=== PATIENT | female | born 1950 | race Caucasian/White ===

== ENCOUNTER 2016-11-09 14:49 | Emergency (ER) | payer MEDICARE, OTHER ==
[2016-11-09] MEDS ORDERED: DIPHENOX-ATROP 2.5-0.025 MG 1 EACH TAB PO STA (14:56)
[2016-11-09] MEDS ORDERED: DIPHENOX-ATROP STARTER PACK 8 TAB BTL PO STA (14:56)
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
[2016-11-09 15:03] VITALS: BP 124/87; PULSE 78; RESP 16; TEMP 98.5
== END 2016-11-09 15:08 | disposition home or self-care (01) ==
LOC: EC 14:49
DX: R19.7 Diarrhea, unspecified (principal); E11.9 Type 2 diabetes mellitus without complications; Z90.49 Acquired absence of other specified parts of digestive tract; Z88.6 Allergy status to analgesic agent; Z88.1 Allergy status to other antibiotic agents; Z88.5 Allergy status to narcotic agent; Z88.8 Allergy status to other drugs, medicaments and biological substances; Z79.4 Long term (current) use of insulin
CPT/HCPCS: 99283

== ENCOUNTER 2016-11-11 17:37 | Emergency (ER) | payer MEDICARE ==
[2016-11-11 17:58] VITALS: RESP 18
[2016-11-11] MEDS ORDERED: traMADol 50 MG TAB PO STA (20:04)
[2016-11-11] MEDS ORDERED: INSULIN REGULAR 100 UNIT/ML VIAL SQ ONE (20:04)
[2016-11-11 20:28] LABS: Glucose,Whole Blood 537 mg/dL (75-99)
[2016-11-11] MEDS ORDERED: MORPHINE SULFATE 10 MG/ML SYRINGE IM STA (20:36)
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
[2016-11-11 21:13] LABS: Amorphous Sediment,Urine Occasional /hpf; Appearance,Urine Cloudy (Clear); Bacteria,Urine Many /hpf; Bilirubin,Urine Negative (Negative); Glucose,Urine (UA) 4+ (Negative); Ketones,Urine 1+ (Negative); Leukocyte Esterase,Urine Large (Negative); Nitrite,Urine Negative (Negative); Particle Count 14164; Protein,Urine Negative (Negative); Specific Gravity,Urine 1.026 (1.001-1.035); Squamous Epithelial Cell,Urine 21 /hpf (0-4); UA Billing (MACRO vs. MICRO) MICRO; Urobilinogen,Urine <2.0 mg/dL (<2.0); WBC,Urine 20 /hpf (0-5)
[2016-11-11 21:13] LABS: Glucose,Whole Blood 546 mg/dL (75-99)
[2016-11-11 21:26] VITALS: BP 143/87; PULSE 100; TEMP 97.9
[2016-11-12 15:29] LABS: Glucose,Whole Blood 580 mg/dL (75-99)
== END 2016-11-11 21:26 | disposition home or self-care (01) ==
LOC: EC 17:37
DX: E11.65 Type 2 diabetes mellitus with hyperglycemia (principal); M79.1 Myalgia; G89.29 Other chronic pain; Z79.4 Long term (current) use of insulin; Z88.6 Allergy status to analgesic agent; Z88.1 Allergy status to other antibiotic agents; Z88.5 Allergy status to narcotic agent; Z88.8 Allergy status to other drugs, medicaments and biological substances
CPT/HCPCS: 36415; 81001; 87086; 99285; 96372; J2270

== ENCOUNTER 2016-11-12 22:42 | Emergency (ER) | payer MEDICARE ==
[2016-11-12 22:54] VITALS: TEMP 98.3
[2016-11-12] MEDS ORDERED: SODIUM CHLORIDE 0.9% 1,000 ML IV STA ×2 (22:56)
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
[2016-11-12 23:34] VITALS: RESP 16
[2016-11-12 23:52] LABS: Basophils % (A) 0 %; CH 28.4; CHCM 35.3; Eosinophils # (A) 0.1 k/uL (0-0.7); Eosinophils % (A) 1 %; HCT 41.6 % (34.0-46.0); HDW 3.29; HGB 14.1 gm/dL (11.4-16.0); Luc # (Auto) 0.18; Luc % (Auto) 2; Lymphocytes # (A) 2.1 k/uL (1.0-4.8); Lymphocytes % (A) 24 %; MCH 27.4 pg (25.0-35.0); MCHC 33.8 g/dL (31.0-37.0); Monocytes # (A) 0.6 k/uL (0-1.0); Monocytes % (A) 7 %; Neutrophils # (A) 5.9 k/uL (1.3-7.7); Neutrophils % (A) 66 %; RBC 5.14 m/uL (3.80-5.40); RDW 14.3 % (11.5-15.5); WBC 8.8 k/uL (3.8-10.6); WBC (Perox) 8.94
[2016-11-13 00:04] LABS: Calcium 10.4 mg/dL (8.4-10.2); Magnesium 2.2 mg/dL (1.6-2.3); Potassium 3.9 mmol/L (3.5-5.1); Total Bilirubin 0.7 mg/dL (0.2-1.3); Total Protein 7.8 g/dL (6.3-8.2)
[2016-11-13 00:23] LABS: Creatine Kinase MB 1.7 ng/mL (0.0-2.4)
--- NOTE | 2016-11-13 01:10 | XR ---
EXAM: XR Cervical Spine, 4 or 5 Views. CLINICAL HISTORY: Reason: Pain TECHNIQUE: Frontal, lateral and oblique views of the cervical spine. COMPARISON: No relevant prior studies available. FINDINGS: Vertebrae: Suspected acute fracture of a C7 pedicle/facet seen on lateral and left oblique views. Recommend CT for further evaluation. 2 mm anterolisthesis at C3-4. Disc spaces: Mild to moderate degenerative changes of the cervical spine. Soft tissues: Unremarkable. Vasculature: Carotid bulb calcifications. Other findings: Poor dentition. Please refer to separately dictated chest x-ray for chest findings. IMPRESSION: 1. Suspected acute fracture of a C7 pedicle/facet seen on lateral and left oblique views. Recommend CT for further evaluation. 2. 2 mm anterolisthesis at C3-4. 3. Mild to moderate degenerative changes of the cervical spine. Critical Value Communications 11/13/16 01:14 Verify Receipt Verified receipt with JAVI Swartz, given to Dr. Ledesma on 11/13 01:14 (-04:00)
[2016-11-13] MEDS ORDERED: INSULIN REGULAR 100 UNIT/ML VIAL SQ STA (01:13)
[2016-11-13] MEDS ORDERED: HYDROcodone/APAP 5-325MG 1 EACH TAB PO STA (01:13)
[2016-11-13] MEDS ORDERED: MORPHINE SULFATE 4 MG/ML SYRINGE IV STA (01:16)
--- NOTE | 2016-11-13 01:38 | XR ---
EXAM: XR Chest, 1 View. CLINICAL HISTORY: Reason: pain TECHNIQUE: Frontal view of the chest. COMPARISON: No relevant prior studies available. FINDINGS: Lungs: Limited exam due to low lung volumes. No gross consolidation or pleural effusion. Heart: Enlarged cardiac silhouette may be exaggerated by low lung volumes. Mediastinum: Unremarkable. Bones/joints: Mild degenerative changes of the spine. Moderate degenerative changes of the left glenohumeral joint. IMPRESSION: 1. Limited exam due to low lung volumes. No gross consolidation or pleural effusion. 2. Enlarged cardiac silhouette may be exaggerated by low lung volumes.
--- NOTE | 2016-11-13 01:45 | XR ---
EXAM: X-ray pelvis, one view. X-ray left femur, 2 views. X-ray left tibia-fibula, 2 views. CLINICAL HISTORY: Reason: Pain TECHNIQUE: Frontal view of the pelvis. Frontal and lateral views of the left femur. Frontal and lateral views of the left tibia and fibula. COMPARISON: X-rays of the pelvis 02/19/2015. FINDINGS: Bones/joints: No acute fracture or dislocation. Indeterminate 26 mm round density projecting over the left iliac bone; follow-up recommended. Moderate degenerative changes of the partially imaged lumbar spine. Severe degenerative changes bilateral hips. Mild degenerative changes of the knee. Patellar enthesopathy at the quadriceps tendon insertion. Soft tissues: Mild soft tissue swelling of the anterior redd. 11 mm oval density projecting over the mid tibia; please correlate for foreign body. Excreted contrast in the bladder. IMPRESSION: 1. No acute fracture or dislocation. 2. Mild soft tissue swelling of the anterior redd. 3. 11 mm oval density projecting over the mid tibia; please correlate for foreign body. 4. Indeterminate 26 mm round density projecting over the left iliac bone, possibly stool content; follow-up recommended. 5. Degenerative changes, detailed above.
[2016-11-13 02:58] LABS: Appearance,Urine Turbid (Clear); Bacteria,Urine Many /hpf; Bilirubin,Urine Negative (Negative); Glucose,Urine (UA) 4+ (Negative); Ketones,Urine Negative (Negative); Leukocyte Esterase,Urine Large (Negative); Mucus,Urine Many /hpf; Nitrite,Urine Negative (Negative); Particle Count 165107; Protein,Urine 1+ (Negative); RBC,Urine 14 /hpf (0-5); Specific Gravity,Urine 1.017 (1.001-1.035); Squamous Epithelial Cell,Urine 9 /hpf (0-4); UA Billing (MACRO vs. MICRO) MICRO; Urobilinogen,Urine <2.0 mg/dL (<2.0); WBC,Urine 97 /hpf (0-5)
[2016-11-13 03:13] LABS: Glucose,Whole Blood 352 mg/dL (75-99)
--- NOTE | 2016-11-13 03:20 | CT ---
EXAM: CT Cervical Spine Without Intravenous Contrast. CLINICAL HISTORY: Reason: Pain, attention c7 per XRay TECHNIQUE: Axial computed tomography images of the cervical spine without intravenous contrast. CTDI is 32 mGy and DLP is 567 mGy-cm This CT exam was performed using one or more of the following dose reduction techniques: automated exposure control, adjustment of the mA and/or kV according to patient size, and/or use of iterative reconstruction technique. COMPARISON: Radiographs 11/12/2016. FINDINGS: Vertebrae: No acute fracture. Apparent cortical break seen on x-rays likely due to a combination of projectional artifact and an asymmetrically small right C7 pedicle. Straightening of the usual cervical lordosis. Left convex curvature of the cervical spine. Discs/spinal canal/neural foramina: Moderate degenerative changes of the cervical spine, particularly of the facets. Cortical irregularity at the left C3-4 facet joint felt to be degenerative in etiology. Soft tissues: Unremarkable. Lung apices: Unremarkable as visualized. IMPRESSION: No acute fracture. Apparent cortical break seen on x-rays likely due to a combination of projectional artifact and an asymmetrically small right C7 pedicle.
[2016-11-13 04:00] VITALS: BP 100/57; PULSE 107
[2016-11-13 20:35] LABS: Hemoglobin A1C 14.7 % (4.2-6.1)
== END 2016-11-13 03:59 | disposition home or self-care (01) ==
LOC: EC 22:42
DX: S80.02XA Contusion of left knee, initial encounter (principal); S70.02XA Contusion of left hip, initial encounter; S10.93XA Contusion of unspecified part of neck, initial encounter; W06.XXXA Fall from bed, initial encounter; E11.65 Type 2 diabetes mellitus with hyperglycemia; I87.2 Venous insufficiency (chronic) (peripheral); Z79.4 Long term (current) use of insulin; Z79.899 Other long term (current) drug therapy
CPT/HCPCS: 99284; 96360; 96374; 36415 ×2; 80053; 82150; 83036; 82550; 82553; 83690; 83735; 85025; 81001; 71010; 72050; 72170; 73552; 73590; 72125; J2270

== ENCOUNTER 2016-11-14 03:43 | Emergency (ER) | payer MEDICARE ==
[2016-11-14 03:53] VITALS: BP 155/91; PULSE 108; RESP 20; TEMP 97.7
[2016-11-14] MEDS ORDERED: ACETAMINOPHEN TAB 500 MG TAB PO STA (04:24)
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
== END 2016-11-14 04:43 | disposition home or self-care (01) ==
LOC: EC 03:43
DX: S16.1XXA Strain of muscle, fascia and tendon at neck level, initial encounter (principal); Z86.14 Personal history of Methicillin resistant Staphylococcus aureus infection; Z88.1 Allergy status to other antibiotic agents; Z88.5 Allergy status to narcotic agent; Z88.6 Allergy status to analgesic agent; Z88.8 Allergy status to other drugs, medicaments and biological substances; X50.1XXA Overexertion from prolonged static or awkward postures, initial encounter
CPT/HCPCS: 99283; 99284

== ENCOUNTER 2016-11-15 03:57 | Emergency (ER) | payer MEDICARE ==
[2016-11-15 04:04] VITALS: TEMP 97.4
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
--- NOTE | 2016-11-15 04:50 | CT ---
EXAM: CT Head Without Intravenous Contrast. CLINICAL HISTORY: Reason: Pain TECHNIQUE: Axial computed tomography images of the head/brain without intravenous contrast. CTDI is 58.00 mGy and DLP is 1058.00 mGy-cm This CT exam was performed using one or more of the following dose reduction techniques: automated exposure control, adjustment of the mA and/or kV according to patient size, and/or use of iterative reconstruction technique. COMPARISON: 01/09/[address] FINDINGS: Brain: Mild to moderate generalized atrophy is again present along with scattered periventricular white matter patchy hypodensity most commonly seen on a chronic small vessel ischemic basis. No hemorrhage. Ventricles: Stable. Bones/joints: Stable. No acute fracture. Sinuses: Partially included small round filling defect suggesting a tiny mucous retention cyst or polyp posteriorly in the right maxillary sinus. Mastoid air cells: Unremarkable as visualized. No mastoid effusion. IMPRESSION: No new acute intracranial abnormality is seen, as above. EXAM: CT Cervical Spine Without Intravenous Contrast. CLINICAL HISTORY: Reason: Pain TECHNIQUE: Axial computed tomography images of the cervical spine without intravenous contrast. CTDI is 35.40 mGy and DLP is 828.50 mGy-cm This CT exam was performed using one or more of the following dose reduction techniques: automated exposure control, adjustment of the mA and/or kV according to patient size, and/or use of iterative reconstruction technique. COMPARISON: Recent 11/13/[address] FINDINGS: Vertebrae: Stable. No acute fracture. Of incidental note is incomplete posterior C1 ring, an anatomic variant. Discs/spinal canal/neural foramina: No change in alignment is seen. There is again mild curvature towards the left of the upper to mid cervical spine and towards the right of the lower cervical and upper thoracic spine, and nonspecific straightening of the normal cervical lordosis. There is again multilevel arthritic and degenerative change present throughout, including involvement of the disc spaces and facet joints, the latter of which again includes mild erosive changes at the left C3-4 facet joint just inferior to fusion of the left C2-3 facet joint, stable. There is again mild reduction of the central canal volume with multilevel foraminal stenosis, likewise stable. Soft tissues: Stable. Prevertebral soft tissues are within normal limits. Vasculature: Carotid and vertebral arterial vascular calcifications are again present. Lung apices: Unremarkable as visualized. IMPRESSION: 1. No significant change since recent 11/13/16 CT including no new acute osseous abnormality seen, as above. 2. Clinical clearance of the cervical spine is still recommended.
[2016-11-15] MEDS ORDERED: ACETAMINOPHEN TAB 500 MG TAB PO STA (05:11)
[2016-11-15 05:22] VITALS: BP 143/67; PULSE 78; RESP 18
== END 2016-11-15 05:21 | disposition home or self-care (01) ==
LOC: EC 03:57
DX: S16.1XXA Strain of muscle, fascia and tendon at neck level, initial encounter (principal); S09.90XA Unspecified injury of head, initial encounter; Z88.6 Allergy status to analgesic agent; Z88.1 Allergy status to other antibiotic agents; Z88.8 Allergy status to other drugs, medicaments and biological substances; W06.XXXA Fall from bed, initial encounter
CPT/HCPCS: 70450; 72125; 99284

== ENCOUNTER 2016-11-15 15:32 | Inpatient (IN) | payer MEDICARE ==
[2016-11-15] MEDS ORDERED: MORPHINE SULFATE 4 MG/ML SYRINGE IVP STA (17:05)
[2016-11-15] MEDS ORDERED: SODIUM CHLORIDE 0.9% 1,000 ML IV ONE (17:05)
[2016-11-15] MEDS ORDERED: KETOROLAC 30 MG/ML 1 ML VIAL IVP STA (17:05)
[2016-11-15] MEDS ORDERED: KETOROLAC 30 MG/ML 1 ML VIAL IM STA (18:23)
[2016-11-15 18:42] LABS: Basophils % (A) 1 %; CH 28.6; CHCM 35.7; Eosinophils # (A) 0.1 k/uL (0-0.7); Eosinophils % (A) 1 %; HCT 36.1 % (34.0-46.0); HDW 3.35; HGB 12.8 gm/dL (11.4-16.0); Luc % (Auto) 4; Lymphocytes # (A) 1.6 k/uL (1.0-4.8); Lymphocytes % (A) 30 %; MCH 28.5 pg (25.0-35.0); MCHC 35.4 g/dL (31.0-37.0); MCV 80.5 fL (80.0-100.0); Mean Platelet Volume 8.8; Monocytes # (A) 0.4 k/uL (0-1.0); Monocytes % (A) 8 %; Neutrophils % (A) 57 %; RBC 4.49 m/uL (3.80-5.40); RDW 14.2 % (11.5-15.5); WBC 5.3 k/uL (3.8-10.6); WBC (Perox) 5.44
[2016-11-15 18:51] LABS: Anion Gap 13 mmol/L; Blood Urea Nitrogen 27 mg/dL (7-17); Calcium 9.9 mg/dL (8.4-10.2); Carbon Dioxide 21 mmol/L (22-30); Chloride 102 mmol/L (98-107); Non-African American GFR(MDRD) >60 (>60 ml/min/1.73 sqM); Potassium 4.6 mmol/L (3.5-5.1); Sodium 136 mmol/L (137-145)
[2016-11-15 18:53] LABS: Glucose 527 mg/dL (74-99)
[2016-11-15 18:55] LABS: Appearance,Urine Clear (Clear); Bilirubin,Urine Negative (Negative); Glucose,Urine (UA) 4+ (Negative); Ketones,Urine Negative (Negative); Leukocyte Esterase,Urine Negative (Negative); Nitrite,Urine Negative (Negative); PH, Urine 5.5 (5.0-8.0); Protein,Urine Negative (Negative); Specific Gravity,Urine 1.025 (1.001-1.035); UA Billing (MACRO vs. MICRO) CHEM; Urobilinogen,Urine <2.0 mg/dL (<2.0)
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
--- NOTE | 2016-11-15 19:49 | XR ---
EXAMINATION TYPE: XR wrist complete RT DATE OF EXAM: 11/15/2016 7:45 PM COMPARISON: NONE HISTORY: Pain TECHNIQUE: 4 views FINDINGS: There is a developmentally short ulna. I see no fracture nor dislocation. Carpal bones appe ar intact. IMPRESSION: No acute abnormality of the right wrist.
--- NOTE | 2016-11-15 19:53 | CT ---
EXAMINATION TYPE: CT brain wo con DATE OF EXAM: 11/15/2016 7:48 PM COMPARISON: 01/09/2014 HISTORY: Fall injury. CT DLP: 2729 mGycm Automated exposure control for dose reduction was used. FINDINGS: There is cerebral cortical atrophy. There is no mass effect nor midline shift. There is no sign of in tracranial hemorrhage. The calvarium is intact. IMPRESSION: Cerebral atrophy. No acute intracranial abnormality. No change.
--- NOTE | 2016-11-15 19:54 | XR ---
EXAMINATION TYPE: XR shoulder limited LT DATE OF EXAM: 11/15/2016 7:45 PM COMPARISON: NONE HISTORY: Pain TECHNIQUE: Single view FINDINGS: There is narrowing of the glenohumeral joint with spur formation. There is spurring at the greater tuberosity of the humerus. There is spurring at the AC joint. I see no fracture. IMPRESSION: Moderately severe osteoarthritis. No fracture seen. Limited exam.
--- NOTE | 2016-11-15 19:56 | XR ---
EXAMINATION TYPE: XR ankle complete bilateral DATE OF EXAM: 11/15/2016 7:48 PM COMPARISON: NONE HISTORY: Pain after fall TECHNIQUE: 3 views FINDINGS: I see no fracture nor dislocation. Ankle mortise is anatomic. IMPRESSION: Negative left ankle exam.
--- NOTE | 2016-11-15 20:02 | CT ---
EXAMINATION TYPE: CT CervThorLumbar spine wo con DATE OF EXAM: 11/15/2016 7:48 PM COMPARISON: NONE HISTORY: Pt states of spine pain after fall injury. CT DLP: 2729 mGycm Automated exposure control for dose reduction was used. FINDINGS: There is fairly normal alignment of the cervical thoracic and lumbar vertebra. I see no scoliosis. Th ere is hypertrophic spurring of the endplates throughout the lower thoracic spine and entire lumbar s pine. There is degenerative disc space narrowing throughout the lumbar spine. The posterior elements are intact. There is no evidence of thoracic paraspinal mass. I see no focal bone destruction. There is no evidence of spinal stenosis. There is some narrowing of the disc spaces and mild spurring at C5 -6 C6-7. Skull base appears intact. IMPRESSION: THERE IS MILD TO MODERATE MULTILEVEL SPONDYLOTIC CHANGE IN THE SPINE DESCRIBED ABOVE. NO COMPRESSI ON FRACTURE SEEN. I DO NOT SEE EVIDENCE OF AN ACUTE INJURY. THERE IS NOTED TO 3.7 CM MILD ANEURYSM OF THE ASCENDING AORTA.
--- NOTE | 2016-11-15 20:03 | XR ---
EXAMINATION TYPE: XR knee complete bilateral DATE OF EXAM: 11/15/2016 7:58 PM COMPARISON: NONE HISTORY: Pain after a fall TECHNIQUE: 6 views FINDINGS: There is some osteopenia. There is spurring of the medial femoral and tibial condyles. Ther e is bilateral spurring at the patellofemoral joints. I see no fracture. IMPRESSION: Mild hypertrophic osteoarthritis. No fracture seen.
[2016-11-15] MEDS ORDERED: NALOXONE 0.4 MG/ML 1 ML VIAL IV PRN (20:13)
[2016-11-15] MEDS ORDERED: IBUPROFEN 400 MG TAB PO PRN (20:13)
[2016-11-15] MEDS ORDERED: ONDANSETRON 4 MG/2 ML VIAL IVP PRN (20:13)
[2016-11-15] MEDS ORDERED: KETOROLAC 30 MG/ML 1 ML VIAL IVP PRN (20:13)
[2016-11-15] MEDS ORDERED: ACETAMINOPHEN TAB 325 MG TAB PO PRN (20:13)
[2016-11-15] MEDS ORDERED: ALBUTEROL NEBULIZED 2.5 MG/3 ML INHALATION PRN (20:15)
[2016-11-15] MEDS ORDERED: predniSONE 2.5 MG TAB PO PRN (20:15)
[2016-11-15] MEDS ORDERED: FUROSEMIDE 40 MG TAB PO PRN (20:15)
[2016-11-15] MEDS ORDERED: INSULIN REGULAR 100 UNIT/ML VIAL IV ONE (20:26)
[2016-11-15 21:24] LABS: Glucose,Whole Blood 551 mg/dL (75-99)
[2016-11-15] MEDS: MORPHINE SULFATE 4 MG/ML SYRINGE IV PRN (21:51)
[2016-11-15 22:44] LABS: Glucose,Whole Blood 310 mg/dL (75-99)
[2016-11-15] MEDS: SODIUM CHLORIDE 0.9% 1,000 ML IV SCH (22:56)
[2016-11-16 00:39] LABS: Anion Gap 13 mmol/L; Blood Urea Nitrogen 28 mg/dL (7-17); Calcium 9.1 mg/dL (8.4-10.2); Carbon Dioxide 22 mmol/L (22-30); Chloride 105 mmol/L (98-107); Glucose 438 mg/dL (74-99); Non-African American GFR(MDRD) >60 (>60 ml/min/1.73 sqM); Potassium 3.8 mmol/L (3.5-5.1); Sodium 140 mmol/L (137-145)
[2016-11-16 00:48] LABS: Glucose,Whole Blood 440 mg/dL (75-99)
[2016-11-16] MEDS ORDERED: ALPRAZolam 0.25 MG TAB PO STA (02:36)
[2016-11-16] MEDS: MORPHINE SULFATE 4 MG/ML SYRINGE IV PRN ×2 (04:01→10:23)
[2016-11-16 05:54] LABS: Glucose,Whole Blood 296 mg/dL (75-99)
[2016-11-16] MEDS: INSULIN LISPRO (humaLOG) 300 UNIT/3 ML VIAL SQ SCH ×6 (06:11→20:33)
[2016-11-16] MEDS: SODIUM CHLORIDE 0.9% 1,000 ML IV SCH ×4 (06:51→20:34)
[2016-11-16 06:56] LABS: Basophils % (A) 0 %; CH 27.9; CHCM 34.3; Eosinophils # (A) 0.1 k/uL (0-0.7); Eosinophils % (A) 1 %; HCT 34.3 % (34.0-46.0); HDW 3.35; HGB 11.4 gm/dL (11.4-16.0); Luc % (Auto) 5; Lymphocytes # (A) 1.9 k/uL (1.0-4.8); Lymphocytes % (A) 43 %; MCH 27.2 pg (25.0-35.0); MCHC 33.3 g/dL (31.0-37.0); MCV 81.9 fL (80.0-100.0); Mean Platelet Volume 7.8; Monocytes # (A) 0.3 k/uL (0-1.0); Monocytes % (A) 7 %; Neutrophils # (A) 1.9 k/uL (1.3-7.7); Neutrophils % (A) 44 %; RBC 4.19 m/uL (3.80-5.40); RDW 14.1 % (11.5-15.5); WBC 4.4 k/uL (3.8-10.6); WBC (Perox) 4.49
[2016-11-16 06:58] LABS: Anion Gap 12 mmol/L; Blood Urea Nitrogen 27 mg/dL (7-17); Calcium 8.9 mg/dL (8.4-10.2); Carbon Dioxide 22 mmol/L (22-30); Chloride 107 mmol/L (98-107); Glucose 284 mg/dL (74-99); Magnesium 2.1 mg/dL (1.6-2.3); Non-African American GFR(MDRD) >60 (>60 ml/min/1.73 sqM); Potassium 3.7 mmol/L (3.5-5.1); Sodium 141 mmol/L (137-145)
[2016-11-16 07:13] LABS: Glucose,Whole Blood 572 mg/dL (75-99)
[2016-11-16 12:07] LABS: Glucose,Whole Blood 288 mg/dL (75-99)
[2016-11-16 12:49] LABS: Hemoglobin A1C 14.9 % (4.2-6.1)
--- NOTE | 2016-11-16 16:23 | HP ---
A 66-year-old came in after syncope. Patient had a couple syncopes. Patient had diarrhea before that and some flu-like symptoms. Will obtain influenza for that. Patient's first syncope appears to be micturition syncope. The second one happened yesterday when [place] the mall and the other one the day before. Patient had diarrhea until the day before and patient is also diabetic. Patient is not on appropriate regimen. Patient does not have any primary care physician, because of which her blood sugars are very high, because of which patient is urinating a lot because of the elevated blood sugars, both of which contributed to her syncopal episode. Anyway, I did review her previous charts and I did not find any echocardiogram. Echocardiogram will be obtained and patient's EKG showed some old ischemic changes in the inferior wall. Patient will need a stress test as outpatient down the line and patient will need a primary care physician. Patient needs to follow with a primary care physician. Will start her on IV fluids, obtain echocardiogram and watch her until tomorrow. Patient probably can be discharged tomorrow. I obtained influenza testing, which is negative. Home medications include: 1. Albuterol. 2. Lasix. 3. Prednisone. 4. Patient takes NPH 70/30, 40 units in the morning and 20 units at night. THE PATIENT IS ALLERGIC TO MULTIPLE MEDICATIONS. PLEASE REFER TO THE CHART. REVIEW OF SYSTEMS: CONSTITUTIONAL: No fever, no malaise, no fatigue. HEENT: No recent visual problems or hearing problems. Denied any sore throat. CARDIOVASCULAR: As described in HPI. Patient denied any chest pain. Patient denied any fever, chills, orthopnea, PND. PULMONARY: No shortness of breath, no cough, no hemoptysis. GASTROINTESTINAL: No diarrhea, no nausea, no vomiting, no abdominal pain. Normoactive bowel sounds. NEUROLOGICAL: No headaches, no weakness, no numbness. HEMATOLOGICAL: Denies any bleeding or petechiae. GENITOURINARY: Denies any burning micturition, frequency, or urgency. MUSCULOSKELETAL/RHEUMATOLOGICAL: Denies any joint pain, swelling, or any muscle pain. ENDOCRINE: Denies any polyuria or polydipsia. The rest of the 14 point review of systems is negative. PAST MEDICAL HISTORY: Significant for COPD, diabetes mellitus, hypertension, osteoarthritis, rheumatoid arthritis and C. diff. and MRSA in the past, appendectomy, cholecystectomy, hysterectomy, tubal ligation surgery and patient has anxiety disorder as well. SOCIAL HISTORY: Denied any smoking, alcohol abuse or any drug abuse. FAMILY HISTORY: Significant for mother of uterine cancer at age 56 and father has COPD. PHYSICAL EXAMINATION: Temperature 97.0, pulse of 101, respiratory rate of 16, blood pressure is 134/79, saturating at 98% on room air. GENERAL: The patient is alert and oriented x3, not in any acute distress. Well developed, well nourished. HEENT: Pupils are round and equally reacting to light. EOMI. No scleral icterus. No conjunctival pallor. Normocephalic, atraumatic. No pharyngeal erythema. No thyromegaly. CARDIOVASCULAR: S1 and S2 present. No murmurs, rubs, or gallops. PULMONARY: Chest is clear to auscultation, no wheezing or crackles. ABDOMEN: Soft, nontender, nondistended, normoactive bowel sounds. No palpable organomegaly. MUSCULOSKELETAL: No joint swelling or deformity. EXTREMITIES: No cyanosis, clubbing, or pedal edema. NEUROLOGICAL: Gross neurological examination did not reveal any focal deficits. SKIN: No rashes. LABORATORY DATA: CBC, CMP are abnormal for mildly low sodium of 136, which has come up and BUN is 28 creatinine is 0.8. Blood glucose is 438. ASSESSMENT: 1. Syncope. I believe it is secondary to intravascular volume depletion, dehydration. Patient's IV fluids will be increased and will obtain echocardiogram and patient will be continued on monitor technician. Patient probably can be transferred out of telemetry unit. 2. Highly elevated blood sugars because of inappropriate regimen. Patient will be started on Lantus 40 units with 8 units of t.i.d. insulin along with sliding scale. 3. Tachycardia secondary to intravascular volume depletion. 4. Diarrhea. Patient probably has viral gastroenteritis which resolved at this point of time. 5. Will also obtain physical therapy and occupational therapy consultation. Patient has some musculoskeletal problems. All her workup was reviewed and patient does not have any fractures. Patient has multiple imaging studies, including ankle x-ray, brain CT, knee x-ray, shoulder x-ray, wrist x-ray, all of which are negative except for thoracolumbar lumbar spine, which showed spondylotic changes and a 3.7-cm aneurysm which can be followed as an outpatient. PLAN: As mentioned above. Patient does not have a primary care physician. Will set up a PCP for her. Patient will be transferred out of [facility].
[2016-11-16] MEDS ORDERED: ACETAMINOPHEN TAB 325 MG TAB PO PRN (16:54)
[2016-11-16 17:17] LABS: Glucose,Whole Blood 240 mg/dL (75-99)
[2016-11-16] MEDS: KETOROLAC 30 MG/ML 1 ML VIAL IVP PRN (17:31)
--- NOTE | 2016-11-16 19:55 | P.CNNES ---
History of Present Illness Consult date: 11/16/16 Reason for Consult: Patient admitted with recurrent syncope and falls. History of Present Illness: This patient is a 66-year-old right-handed white female was brought into the emergency room for evaluation of multiple syncopal episodes at home. Patient states she had several passing out spells at home as well as a recent episode in the mall. She was walking with her walker and apparently was using her walker to get about and when she passed out and collapsed to the floor. EMS was called to the scene. She was brought into the emergency room for further evaluation yesterday. She was seen in the ER by Dr. Anderson. Patient states that she has a long-standing history of uncontrolled diabetes mellitus. She has been a diabetic for over 32 years. She used to work as a nurse and realizes the consequences of uncontrolled diabetes. She states she has not seen a primary care physician in over 6 months. She has been obtaining her diabetic medications from local ERs. The patient is now aware of the seriousness of her current admission. She is advised to find a primary care physician and at 10 to the diabetes as soon as possible. Her blood sugar in the ER on admission was 381. Her hemoglobin A1c is 14.9. Patient states she does not remember having any episodes of seizure-like events associated with the syncope. She does suffer from asthma as well as probable hypoglycemic reactions. She was not aware of her blood sugar reading recently with the syncopal episodes. The patient also has not had enough hydration. There was some degree of dehydration noted in her admission laboratory tests. As noted she has not been taking care of her diabetes or her general health recently. As she stated she has not seen a physician in 6 months. The patient is now admitted and neurology has been consulted for further evaluation and recommendations. Review of Systems Constitutional: Denies chills, Denies fever Eyes: denies blurred vision, denies pain Ears, nose, mouth and throat: Denies headache, Denies sore throat Cardiovascular: Denies chest pain, Denies shortness of breath Respiratory: Denies cough Gastrointestinal: Denies abdominal pain, Denies diarrhea, Denies nausea, Denies vomiting Genitourinary: Denies dysuria, Denies hematuria Musculoskeletal: Denies myalgias Integumentary: Denies pruritus, Denies rash Neurological: Reports balance difficulties, Reports confusion, Reports lack of coordination, Reports paresthesias, Reports spasticity, Reports tingling, Denies numbness, Denies weakness Psychiatric: Denies anxiety, Denies depression Endocrine: Denies fatigue, Denies weight change Past Medical History Past Medical History: Asthma, COPD, Diabetes Mellitus, Hypertension, Osteoarthritis (OA), Pneumonia, Rheumatoid Arthritis (RA), Skin Disorder Additional Past Medical History / Comment(s): IDDM, R gluteal wound- hx of "boils", back pain, chronic pain, back pain with R sided sciatica, DJD, anemia , seasonal allergies, migraines, PVD, bilateral varicosities, bilateral leg edema, numbness/tingling to bilateral hands and feet, abdominal hernia, hx of R ankle fx, past high blood pressure History of Any Multi-Drug Resistant Organisms: MRSA Date of last positivie culture/infection: L Anterior Vega, MDRO Source:: 10/02/2013 Past Surgical History: Appendectomy, Cholecystectomy, Hysterectomy, Tubal Ligation Additional Past Surgical History / Comment(s): yuridia 01/27, I&Ds of R gluteal abscess, PICC line in and removed, power port inserted 10/2015, I&Ds of boils, bilateral salpingectomy, Past Anesthesia/Blood Transfusion Reactions: No Reported Reaction Additional Past Anesthesia/Blood Transfusion Reaction / Comment(s): Pt states she has never received blood, has had anesthesia and no problems Past Psychological History: Anxiety Additional Psychological History / Comment(s): Pt resides with her spouse. She ambulates with a cane or a rolling walker with a seat. Smoking Status: Never smoker Past Alcohol Use History: None Reported Past Drug Use History: None Reported Additional Drug Use History / Comment(s): patient denies overuse of her prescribed medications. - Past Family History Mother Family Medical History: Cancer Additional Family Medical History / Comment(s): Mother of uterine cancer at 56 yrs of age. Father Family Medical History: COPD Additional Family Medical History / Comment(s): Father had alcoholism and at age 59 yrs. Medications and Allergies Home Medications Medication Instructions Recorded Confirmed Type Albuterol Inhaler [Ventolin Hfa 2 puff INHALATION RT-Q6H PRN 01/26/16 11/15/16 History Inhaler] Furosemide [Lasix] 40 mg PO Q48H PRN 11/15/16 11/15/16 History predniSONE 2.5 mg PO DAILY PRN 11/15/16 11/15/16 History Allergies Allergy/AdvReac Type Severity Reaction Status Date / Time aspirin AdvReac Mild Nausea & Verified 11/15/16 15:47 Vomiting celecoxib [From Celebrex] AdvReac Mild Nausea & Verified 11/15/16 15:47 Vomiting clarithromycin [From Biaxin] AdvReac Mild Nausea & Verified 11/15/16 15:47 Vomiting cyclobenzaprine HCl AdvReac Mild Nausea & Verified 11/15/16 15:47 [From Flexeril] Vomiting ibuprofen [From Motrin] AdvReac Mild Nausea & Verified 11/15/16 15:47 Vomiting ketorolac tromethamine AdvReac Mild Nausea & Verified 11/15/16 15:47 [From Toradol] Vomiting meperidine HCl [From Demerol] AdvReac Mild Nausea & Verified 11/15/16 15:47 Vomiting metformin AdvReac Mild Nausea & Verified 11/15/16 15:47 Vomiting naproxen [From Naprosyn] AdvReac Mild Nausea & Verified 11/15/16 15:47 Vomiting tetracycline [Tetracycline] AdvReac Mild Nausea & Verified 11/15/16 15:47 Vomiting Physical Examination - Vital Signs Vital Signs: Vital Signs Temp Pulse Pulse Resp BP BP BP 11/16/16 15:57 101 H 18 11/16/16 15:44 97.7 F 101 H 18 11/16/16 11:27 101 H 16 11/16/16 11:23 101 H 16 11/16/16 08:00 97.0 F L 101 H 18 11/16/16 03:50 97 F L 104 H 18 155/89 108/62 11/16/16 00:30 112 H 18 11/15/16 22:30 96.8 F L 109 H 18 11/15/16 21:56 97.1 F L 102 H 18 154/75 BP Pulse Ox 11/16/16 15:57 11/16/16 15:44 128/95 99 11/16/16 11:27 11/16/16 11:23 134/79 98 11/16/16 08:00 91/68 100 11/16/16 03:50 97 11/16/16 00:30 135/69 97 11/15/16 22:30 146/93 98 11/15/16 21:56 98 Intake and Output 11/16/16 11/16/16 11/16/16 06:59 14:59 22:59 Intake Total 750 Output Total 600 Balance 150 Intake: Intake, IV Titration 750 Amount Sodium Chloride 0.9% 1, 750 000 ml @ 100 mls/hr IV . Q10H [facility] Rx#:[id number] Output: Urine 600 Straight 500 Other: Weight 85.1 kg 85.1 kg 85.1 kg Patient Weight 11/17/16 06:59 Weight 85.1 kg - Constitutional General appearance: average body habitus, cooperative - EENT EENT: PERRL, mucous membranes moist - Respiratory Respiratory: lungs clear, normal breath sounds - Cardiovascular Cardiovascular: regular rate, normal S1, normal S2 Extremities: no peripheral edema bilaterally - Gastrointestinal Gastrointestinal: normoactive bowel sounds - Integumentary Integumentary: normal - Neurologic Cranial nerve examination: PERRL, EOMI, VFF, V1/V2/V3 grossly intact, face symmetric, tongue midline, intact gag reflex, intact corneal reflex, normal palatal elevation Speech examination: intact Sensorimotor examination: intact Motor examination - right side: 4/5: biceps, triceps, wrist flexion, wrist extension, siebel solution architect, hip flexors, knee extensors, dorsiflexion, toe extension (EHL) , plantarflexion Motor examination - left side: 4/5: biceps, triceps, wrist flexion, wrist extension, siebel solution architect, hip flexors, knee extensors, dorsiflexion, toe extension (EHL) , plantarflexion Detailed sensory examination: intact Reflex and gait examination: intact Reflexes: 1+: ankle, bicep, knee, tricep - Musculoskeletal Musculoskeletal: no pain - Psychiatric Psychiatric: mood/affect appropriate, cooperative Results - Laboratory Findings CBC and BMP: 11/16/16 06:20 11/16/16 06:20 Abnormal Lab Findings: Abnormal Labs 11/15/16 11/15/16 11/16/16 21:20 22:43 00:06 BUN 28 H Glucose 438 H POC Glucose (mg/dL) 551 H 310 H Hemoglobin A1c 11/16/16 11/16/16 11/16/16 00:46 05:53 06:20 BUN 27 H Glucose 284 H POC Glucose (mg/dL) 440 H 296 H Hemoglobin A1c 11/16/16 11/16/16 11/16/16 06:20 11:39 16:56 BUN Glucose POC Glucose (mg/dL) 288 H 240 H Hemoglobin A1c 14.9 H Assessment and Plan (1) Syncope and collapse Status: Acute Code(s): R55 - SYNCOPE AND COLLAPSE (2) Metabolic encephalopathy Status: Acute Code(s): G93.41 - METABOLIC ENCEPHALOPATHY (3) Uncontrolled diabetes mellitus Status: Acute Code(s): E11.65 - TYPE 2 DIABETES MELLITUS WITH HYPERGLYCEMIA (4) Viral gastroenteritis Status: Acute Code(s): A08.4 - VIRAL INTESTINAL INFECTION, UNSPECIFIED Plan: This patient is a 66-year-old female admitted with multiple complex medical issues including uncontrolled diabetes mellitus and multiple syncopal episodes. Patient was noted to have episode of multiple syncope at home as well as on admission to the hospital. She has not been seen by a physician in over 6 months. She had evidence of uncontrolled diabetes mellitus on admission. Her average blood glucose was 381 and her hemoglobin A1c is 14.9. Patient states that several of her events may have been related to hypoglycemia. She states that her blood sugars have been up and down. She was brought into the emergency room and was seen by Dr. Anderson. She underwent a computed tomography scan of the brain reveals cerebral atrophy with no acute stroke or hemorrhage. Computed tomography scan of the spine revealed mild to moderate multiple level spondylitic changes of the spine. No evidence of compression fractures. There is a 3.7 cm ascending aortic aneurysm noted. Patient was subsequently admitted to Hospital. Her neurological exam at this time is nonfocal. She has clear evidence of severe uncontrolled diabetes mellitus. She needs tight regulation of her blood sugars. She needs diabetic education. Also instructed the patient to find a local physician for close management of her multiple complex medical issues. We will obtain a routine EEG tomorrow morning to rule out possible underlying seizure disorder which seems to be less likely in this patient. She is to be monitored for orthostatic hypotension as well. She does have volume depletion and will require IV fluid management. Her overall prognosis at this time remains very guarded. We will continue close neurological follow-up with this patient during this admission. Time with Patient: Greater than 30
[2016-11-16 20:26] LABS: Glucose,Whole Blood 131 mg/dL (75-99)
[2016-11-16] MEDS: CARISOPRODOL 350 MG TAB PO PRN (20:42)
[2016-11-16] MEDS ORDERED: INSULIN GLARGINE 100 UNIT/ML 10 ML VIAL SQ SCH (21:00)
[2016-11-17 04:37] LABS: Glucose,Whole Blood 258 mg/dL (75-99)
[2016-11-17] MEDS: KETOROLAC 30 MG/ML 1 ML VIAL IVP PRN ×3 (05:13→21:41)
[2016-11-17] MEDS: SODIUM CHLORIDE 0.9% 1,000 ML IV SCH ×3 (05:16→12:38)
[2016-11-17] MEDS: CARISOPRODOL 350 MG TAB PO PRN ×3 (06:48→22:14)
[2016-11-17 07:12] LABS: Glucose,Whole Blood 244 mg/dL (75-99)
[2016-11-17] MEDS: INSULIN LISPRO (humaLOG) 300 UNIT/3 ML VIAL SQ SCH ×8 (07:38→21:42)
--- NOTE | 2016-11-17 10:31 | ECHOF ---
Referral Reason:Syncope MEASUREMENTS -------- HEIGHT: 162.6 cm WEIGHT: 84.8 kg BP: 134/79 RVIDd: 2.5 cm (< 3.3) IVSd: 1.0 cm (0.6 - 1.1) LVIDd: 2.4 cm (3.9 - 5.3) LVPWd: 1.0 cm (0.6 - 1.1) IVSs: 1.7 cm LVIDs: 1.7 cm LVPWs: 1.2 cm LA Diam: 2.8 cm (2.7 - 3.8) LAESV Index (A-L): 14.21 ml/m Ao Diam: 3.1 cm (2.0 - 3.7) AV Cusp: 1.5 cm (1.5 - 2.6) LA Diam: 2.7 cm (2.7 - 3.8) MV EXCURSION: 14.924 mm (> 18.000) MV EF SLOPE: 93 mm/s (70 - 150) MV E Anish: 1.21 m/s MV DecT: 220 ms MV A Anish: 1.31 m/s MV E/A Ratio: 0.93 FINDINGS -------- Sinus rhythm. This was a technically good study. Left ventricular wall thickness is normal. Overall left ventricular systolic function is normal with, an EF between 55 - 60 %. Mitral Doppler inflow pattern suggests diastolic filling abnormality 24.61. The right ventricle is normal in size and function. Normal LA size by volume 22+/-6 ml/m2. The right atrium is normal in size. Aortic valve is trileaflet and is mildly thickened. The mitral valve leaflets are mildly thickened. Mild mitral annular calcification present. There is trace mitral regurgitation. Trace tricuspid regurgitation present. Pulmonic valve appears structurally normal. The aortic root size is normal. Normal inferior vena cava with normal inspiratory collapse consistent with estimated right atrial pressure of 5 mmHg. There is no pericardial effusion. CONCLUSIONS -------- 1. Sinus rhythm. 2. Mild mitral annular calcification present. 3. There is trace mitral regurgitation. 4. Trace tricuspid regurgitation present. 5. Pulmonic valve appears structurally normal. 6. The aortic root size is normal. 7. Normal inferior vena cava with normal inspiratory collapse consistent with estimated right atrial pressure of 5 mmHg. 8. There is no pericardial effusion. 9. This was a technically good study. 10. Left ventricular wall thickness is normal. 11. Overall left ventricular systolic function is normal with, an EF between 55 - 60 %. 12. Mitral Doppler inflow pattern suggest diastolic filling abnormality 24.61. 13. The right ventricle is normal in size and function. 14. The right atrium is normal in size. 15. Aortic valve is trileaflet and is mildly thickened. 16. The mitral valve leaflets are mildly thickened. SOCIAL MEDIA MARKETING SPECIALIST: Jasper Holland RDCS
[2016-11-17 12:19] LABS: Glucose,Whole Blood 321 mg/dL (75-99)
[2016-11-17 14:09] VITALS: BMI 32.2
[2016-11-17] MEDS: BUTALB/APAP/CAFF 50-325-40MG TAB PO PRN (14:16)
--- NOTE | 2016-11-17 15:41 | PN ---
66-year-old admitted after syncope. Patient is secondary to intravascular depletion. Patient also has elevated blood sugars uptitrating insulin today. Patient's hemoglobin A1C is 14.9. Patient has generalized weakness, and chronic deconditioning for which patient will need rehabilitation, which can be done only tomorrow. Patient is otherwise clinically doing well, I am uptitrating the Lantus as well as premeal insulin. REVIEW OF SYSTEMS: CARDIOVASCULAR: No chest pain, no orthopnea, no PND, no palpitations. PULMONARY: Denied any shortness of breath. No cough or hemoptysis. GASTROINTESTINAL: No diarrhea, nausea or vomiting. No abdominal pain. Normoactive bowel sounds. NEUROLOGIC: No headaches, no weakness, no numbness. Medications were reviewed. PHYSICAL EXAMINATION: VITAL SIGNS: Temperature 97.4, pulse of 88, respiratory rate of 18, blood pressure is 110/78, saturating at 98% on 2 L O2 by nasal cannula. GENERAL: The patient is alert and oriented x3, not in any acute distress. Well developed, well nourished. HEENT: Pupils are round and equally reacting to light. EOMI. No scleral icterus. No conjunctival pallor. Normocephalic, atraumatic. No pharyngeal erythema. No thyromegaly. CARDIOVASCULAR: S1 and S2 present. No murmurs, rubs, or gallops. PULMONARY: Chest is clear to auscultation, no wheezing or crackles. ABDOMEN: Soft, nontender, nondistended, normoactive bowel sounds. No palpable organomegaly. MUSCULOSKELETAL: No joint swelling or deformity. EXTREMITIES: No cyanosis, clubbing, or pedal edema. NEUROLOGICAL: Gross neurological examination did not reveal any focal deficits. SKIN: No rashes. FINAL DIAGNOSIS(ES): 1. Syncope due to above-mentioned reasons the recent intravascular volume depletion. 2. Highly elevated blood sugars and uncontrolled diabetes mellitus, type II. Management as mentioned above in the interval history. 3. Tachycardia due to intravascular volume depletion which resolved. 4. Diarrhea, viral gastroenteritis which resolved. 5. Chronic deconditioning. 6. 3.7 cm ascending aortic aneurysm for which this needs to be followed with yearly ultrasounds. PLAN: As mentioned in the interval history. Possibility of discharge tomorrow.
[2016-11-17 16:56] LABS: Glucose,Whole Blood 94 mg/dL (75-99)
[2016-11-17] MEDS ORDERED: levETIRAcetam IV 1,000 MG in SALINE 1 100ML.BAG IVPB STA (17:52)
--- NOTE | 2016-11-17 18:25 | P.PN ---
Subjective This patient is a 66-year-old female who was admitted the hospital with multiple complex medical issues. Neurology was consulted yesterday for recurrent syncope. The patient has long-standing history of diabetes mellitus as well as multiple other complicated medical issues. She was found to have evidence of volume depletion possibly contributing to her syncopal episode. The patient was recommended to undergo routine EEG today which was reviewed. EEG is abnormal and does reveal multiple areas of temporal discharge emanating from the right hemisphere. This is consistent with probable seizure disorder deep level origin. We are recommending start the patient on Keppra for seizure prophylaxis. We would also recommend MRI of the brain for further evaluation to rule out intracranial lesion. We will continue close neurological follow-up for the patient. She is being treated for her uncontrolled diabetes mellitus. Her hemoglobin A1c on admission was elevated 14.9. She has not seen a physician for over 20 years. She needs to establish with a primary care physician one she has at this stage for discharge. We will continue close neurological follow-up this patient during this admission. Objective - Vital Signs Vital signs: Vital Signs Temp 97.6 F 11/17/16 15:00 Pulse 84 11/17/16 15:00 Resp 18 11/17/16 15:00 BP 126/68 11/17/16 15:00 Pulse Ox 99 11/17/16 15:00 Intake & Output 11/16/16 11/17/16 11/17/16 18:59 06:59 18:59 Intake Total 440 Output Total 600 Balance -600 440 Weight 85.1 kg 85.1 kg Intake: Oral 440 Output: Urine 600 Other: Voiding Method Toilet # Voids 0 # Bowel Movements 1 - Exam Physical examination: PHYSICAL EXAMINATION: Patient is resting comfortably in bed. VITAL SIGNS: Blood pressure is [126/68]. Heart rate is [84]. Respiration is [18] . Temperature is [97.7]. HEENT: Head is atraumatic, neck is supple, there were no carotid bruits. CHEST: Lungs are clear to auscultation and percussion. CARDIAC: S1, S2 normal rate and rhythm. There is no murmur. ABDOMEN: Soft and nontender. Bowel sounds are present. EXTREMITIES: There is no pedal edema. Peripheral pulses are present. Neurological examination: Patient's neurological examination is unchanged from yesterday. - Labs CBC & Chem 7: 11/16/16 06:20 11/16/16 06:20 Labs: Abnormal Lab Results - Last 24 Hours (Table) 11/16/16 11/16/16 11/17/16 Range/Units 16:56 20:25 04:35 POC Glucose (mg/dL) 240 H 131 H 258 H (75-99) mg/dL 11/17/16 11/17/16 Range/Units 07:07 12:00 POC Glucose (mg/dL) 244 H 321 H (75-99) mg/dL Assessment and Plan (1) Syncope and collapse Status: Acute Code(s): R55 - SYNCOPE AND COLLAPSE (2) Metabolic encephalopathy Status: Acute Code(s): G93.41 - METABOLIC ENCEPHALOPATHY (3) Uncontrolled diabetes mellitus Status: Acute Code(s): E11.65 - TYPE 2 DIABETES MELLITUS WITH HYPERGLYCEMIA (4) Viral gastroenteritis Status: Acute Code(s): A08.4 - VIRAL INTESTINAL INFECTION, UNSPECIFIED Plan: This patient is a 66-year-old female who was admitted to hospital with multiple recurrent syncopal episodes. She underwent a routine EEG today which was reviewed. EEG reveals epileptiform discharges emanating from the right hemisphere in the temporal lobe. This finding suggests possibility of underlying seizure disorder deep level origin. We recommend to start the patient on Keppra for seizure prophylaxis. We would recommend MRI of the brain
[2016-11-17] MEDS ORDERED: INSULIN GLARGINE 100 UNIT/ML 10 ML VIAL SQ SCH (21:00)
[2016-11-17 21:18] LABS: Glucose,Whole Blood 95 mg/dL (75-99)
[2016-11-17] MEDS: levETIRAcetam 500 MG TAB PO SCH (21:43)
[2016-11-18] MEDS: SODIUM CHLORIDE 0.9% 1,000 ML IV SCH ×2 (01:23→16:05)
[2016-11-18] MEDS: KETOROLAC 30 MG/ML 1 ML VIAL IVP PRN ×2 (06:27→12:42)
[2016-11-18 07:32] LABS: Glucose,Whole Blood 143 mg/dL (75-99)
[2016-11-18 07:56] VITALS: RESP 16
[2016-11-18] MEDS: INSULIN LISPRO (humaLOG) 300 UNIT/3 ML VIAL SQ SCH ×4 (07:57→12:43)
[2016-11-18] MEDS: levETIRAcetam 500 MG TAB PO SCH (07:57)
[2016-11-18] MEDS: CARISOPRODOL 350 MG TAB PO PRN (08:04)
[2016-11-18 09:24] LABS: Anion Gap 10 mmol/L; Blood Urea Nitrogen 18 mg/dL (7-17); Carbon Dioxide 18 mmol/L (22-30); Chloride 113 mmol/L (98-107); Glucose 225 mg/dL (74-99); Non-African American GFR(MDRD) >60 (>60 ml/min/1.73 sqM); Potassium 4.3 mmol/L (3.5-5.1); Sodium 141 mmol/L (137-145)
[2016-11-18 09:54] LABS: CH 27.5; CHCM 31.8; HCT 32.6 % (34.0-46.0); HDW 3.21; HGB 10.7 gm/dL (11.4-16.0); Hypochromasia Slight; MCH 28.5 pg (25.0-35.0); MCHC 32.8 g/dL (31.0-37.0); Mean Platelet Volume 8.1; RBC 3.75 m/uL (3.80-5.40); RDW 14.2 % (11.5-15.5); WBC 3.6 k/uL (3.8-10.6)
[2016-11-18 10:00] LABS: MCV 86.9 fL (80.0-100.0)
--- NOTE | 2016-11-18 10:37 | EEG ---
DATE OF SERVICE: 11/17/2016 INDICATIONS FOR EXAMINATION: This patient is a 66-year-old female admitted with multiple syncopal episodes and uncontrolled diabetes mellitus. AGE: 66Y FINDINGS: A routine 21-channel awake digital EEG recording was accomplished utilizing the 10 to 20 international system with bipolar and referential montages. The background activity in the most alert resting state consists of a low to medium amplitude fairly well developed and well sustained 6 to 7 Hz activity over the posterior head regions. This posterior rhythm attenuates to eye opening. There is a small amount of low amplitude 18 to 20 Hz beta activity seen maximally over the anterior head regions. Muscle and movement artifact was observed on several occasions during the tracing. Hyperventilation was not performed. Photic stimulation at flash frequencies of 2 to 30 Hz produced a good symmetrical occipital driving response. The main feature of this tracing is the occurrence of focal right hemispheric epileptiform discharges lasting 3 to 4 seconds in duration without any clinical correlate. This was observed on 3 separate epochs. IMPRESSION: This EEG is abnormal due to the occurrence of right temporal epileptiform discharges lasting for 3 to 4 seconds duration on multiple epochs. This finding suggests possibility of seizure disorder of deep level origin. Clinical correlation is strongly recommended.
[2016-11-18 12:08] LABS: Glucose,Whole Blood 204 mg/dL (75-99)
[2016-11-18] MEDS: BUTALB/APAP/CAFF 50-325-40MG TAB PO PRN (12:42)
[2016-11-18 14:38] VITALS: BP 155/70; TEMP 96.8
--- NOTE | 2016-11-18 14:39 | DS ---
DATE OF ADMISSION: 11/15/2016 DATE OF DISCHARGE: 11/16/2016 This patient is a 66-year-old female admitted with syncope due to intravascular volume depletion and highly elevated blood sugars. Patient was evaluated by Neurology. EEG was done which was a little bit abnormal with temporal epileptiform discharges, because of which patient was started on Keppra by Neurology. Patient is otherwise clinically doing well and will be discharged. Patient did not have any seizures here. Not sure whether patient had actually a seizure, except for this EEG abnormality. Patient will be discharged today in stable medical condition to subacute rehabilitation. Patient has a bit of narcotic-seeking behavior. Patient was seen and examined on the day of discharge. Vitals are stable. PHYSICAL EXAMINATION: GENERAL: The patient is alert and oriented x3, not in any acute distress. Well developed, well nourished. HEENT: Pupils are round and equally reacting to light. EOMI. No scleral icterus. No conjunctival pallor. Normocephalic, atraumatic. No pharyngeal erythema. No thyromegaly. CARDIOVASCULAR: S1 and S2 present. No murmurs, rubs, or gallops. PULMONARY: Chest is clear to auscultation, no wheezing or crackles. ABDOMEN: Soft, nontender, nondistended, normoactive bowel sounds. No palpable organomegaly. MUSCULOSKELETAL: No joint swelling or deformity. EXTREMITIES: No cyanosis, clubbing, or pedal edema. NEUROLOGICAL: Gross neurological examination did not reveal any focal deficits. SKIN: No rashes. FINAL DIAGNOSES: 1. Syncope due to intravascular volume depletion secondary to diarrhea and also elevated blood sugars. 2. Tachycardia, resolved, due to intravascular volume depletion. 3. Diarrhea secondary to viral gastroenteritis, which resolved. 4. Changes on the EEG; some epileptiform focus in the temporal lobe on the EEG without any clear-cut clinical seizure. Patient was started on Keppra. 5. Ascending aortic aneurysm measuring 3.7 cm, which needs to be followed as an outpatient with yearly ultrasounds. Patient is being discharged today to subacute rehab. Discharge diet diabetic 1800-calorie. Activity as per the facility. Follow up with the physician in the rehab center. Spent greater than 35 minutes in total discharge process.
[2016-11-18 15:31] VITALS: PULSE 96
--- NOTE | 2016-11-18 16:59 | MR ---
EXAMINATION TYPE: MR brain wo/w con DATE OF EXAM: 11/18/2016 4:42 PM COMPARISON: CT brain from 3 days ago. HISTORY: poss seizures TECHNIQUE: Multiplanar, multisequence images of the brain and brainstem is performed without and with IV contras t, utilizing 20 mL intravenous MultiHance . FINDINGS: Diffusion weighted images demonstrate no evidence of a recent infarct or other diffusion ab normality. There is no worrisome extra-axial fluid collection. There is ventricular and sulcal promi nence consistent with diffuse cerebral atrophy. There are some scattered foci of T2 hyperintensity se en throughout the deep and periventricular white matter. Lesions are nonspecific in appearance and di stribution are most likely on basis of product of chronic small vessel ischemic change in patient thi s age. Midline structures demonstrate normal morphology. The craniocervical junction appears within normal limits. Post contrast images demonstrate no abnormal enhancement. The dural venous sinuses appear pa tent. The visualized sinuses are clear and the globes are intact. IMPRESSION: 1. There is mild to moderate diffuse cerebral atrophy and chronic small vessel ischemic change redemo nstrated. No suspicious enhancing parenchymal mass is identified. No suspicious finding is seen to ac count for patient's symptoms of possible new seizures.
[2016-11-18] MEDS ORDERED: INSULIN LISPRO (humaLOG) 300 UNIT/3 ML VIAL SQ SCH (17:30)
[2016-11-18] MEDS ORDERED: INSULIN GLARGINE 100 UNIT/ML 10 ML VIAL SQ SCH (21:00)
--- NOTE | 2016-11-19 00:04 | P.PN ---
Subjective This patient is a 66-year-old female who was admitted the hospital with multiple complex medical issues. Neurology was consulted yesterday for recurrent syncope. The patient has long-standing history of diabetes mellitus as well as multiple other complicated medical issues. She was found to have evidence of volume depletion possibly contributing to her syncopal episode. The patient was recommended to undergo routine EEG today which was reviewed. EEG is abnormal and does reveal multiple areas of temporal discharge emanating from the right hemisphere. This is consistent with probable seizure disorder deep level origin. We are recommending start the patient on Keppra for seizure prophylaxis. We would also recommend MRI of the brain for further evaluation to rule out intracranial lesion. We will continue close neurological follow-up for the patient. She is being treated for her uncontrolled diabetes mellitus. Her hemoglobin A1c on admission was elevated 14.9. She has not seen a physician for over 20 years. She needs to establish with a primary care physician one she has at this stage for discharge. Patient was able to undergo MRI of the brain today. MRI failed to reveal any enhancing lesions. She is to continue on Keppra for long-term seizure prophylaxis. She is being considered for discharge to subacute rehab later today. We will continue close neurological follow-up this patient during this admission. Objective - Vital Signs Vital signs: Vital Signs Temp 96.9 F L 11/18/16 07:00 Pulse 84 11/18/16 07:00 Resp 16 11/18/16 07:00 BP 134/90 11/18/16 07:00 Pulse Ox 100 11/18/16 07:00 Intake & Output 11/17/16 11/18/16 11/18/16 18:59 06:59 18:59 Intake Total 440 Balance 440 Weight 85.1 kg Intake: Oral 440 Other: Voiding Method Toilet Toilet Bedside Commode Bedside Commode # Voids 2 2 # Bowel Movements 1 1 - Exam Physical examination: PHYSICAL EXAMINATION: Patient is resting comfortably in bed. VITAL SIGNS: Blood pressure is [134/90]. Heart rate is [84]. Respiration is [16] . Temperature is [97.0]. HEENT: Head is atraumatic, neck is supple, there were no carotid bruits. CHEST: Lungs are clear to auscultation and percussion. CARDIAC: S1, S2 normal rate and rhythm. There is no murmur. ABDOMEN: Soft and nontender. Bowel sounds are present. EXTREMITIES: There is no pedal edema. Peripheral pulses are present. Neurological examination: Patient's neurological examination is unchanged from yesterday. - Labs CBC & Chem 7: 11/18/16 08:55 11/18/16 08:55 Labs: Abnormal Lab Results - Last 24 Hours (Table) 11/17/16 11/18/16 11/18/16 Range/Units 12:00 07:04 08:55 WBC 3.6 L (3.8-10.6) k/uL RBC 3.75 L (3.80-5.40) m/uL Hgb 10.7 L (11.4-16.0) gm/dL Hct 32.6 L (34.0-46.0) % Plt Count 132 L (150-450) k/uL Chloride (98-107) mmol/L Carbon Dioxide (22-30) mmol/L BUN (7-17) mg/dL Glucose (74-99) mg/dL POC Glucose (mg/dL) 321 H 143 H (75-99) mg/dL Calcium (8.4-10.2) mg/dL 11/18/16 11/18/16 Range/Units 08:55 11:47 WBC (3.8-10.6) k/uL RBC (3.80-5.40) m/uL Hgb (11.4-16.0) gm/dL Hct (34.0-46.0) % Plt Count (150-450) k/uL Chloride 113 H (98-107) mmol/L Carbon Dioxide 18 L (22-30) mmol/L BUN 18 H (7-17) mg/dL Glucose 225 H (74-99) mg/dL POC Glucose (mg/dL) 204 H (75-99) mg/dL Calcium 8.0 L (8.4-10.2) mg/dL Assessment and Plan (1) Syncope and collapse Status: Acute Code(s): R55 - SYNCOPE AND COLLAPSE (2) Metabolic encephalopathy Status: Acute Code(s): G93.41 - METABOLIC ENCEPHALOPATHY (3) Uncontrolled diabetes mellitus Status: Acute Code(s): E11.65 - TYPE 2 DIABETES MELLITUS WITH HYPERGLYCEMIA (4) Viral gastroenteritis Status: Acute Code(s): A08.4 - VIRAL INTESTINAL INFECTION, UNSPECIFIED Plan: This patient is a 66-year-old female who was admitted to hospital with multiple recurrent syncopal episodes. She underwent a routine EEG today which was reviewed. EEG reveals epileptiform discharges emanating from the right hemisphere in the temporal lobe. This finding suggests possibility of underlying seizure disorder deep level origin. We recommend to start the patient on Keppra for seizure prophylaxis. Patient underwent MRI of the brain today. MRI was reviewed. MRI fails to reveal any enhancing lesions. Patient is to be maintained on Keppra for long-term seizure prophylaxis. She is being considered for discharge to subacute rehab today. She may follow-up in the outpatient neurology clinic in 3-4 weeks. Her overall prognosis at this time remains guarded.
== END 2016-11-18 16:49 | DRG 640 ==
LOC: EC 15:32 → 6SEL 20:13 → UNDODISIN 11-16 15:02 → 4MS4W 11-16 18:56
PROVIDERS: ADMIT Internal Medicine; ATTEND Internal Medicine
DX: E86.0 Dehydration (principal); G93.41 Metabolic encephalopathy; A08.4 Viral intestinal infection, unspecified; E11.51 Type 2 diabetes mellitus with diabetic peripheral angiopathy without gangrene; E11.65 Type 2 diabetes mellitus with hyperglycemia; I71.2 Thoracic aortic aneurysm, without rupture; J44.9 Chronic obstructive pulmonary disease, unspecified; D64.9 Anemia, unspecified; M54.31 Sciatica, right side; M47.815 Spondylosis without myelopathy or radiculopathy, thoracolumbar region; M47.816 Spondylosis without myelopathy or radiculopathy, lumbar region; R94.31 Abnormal electrocardiogram [ECG] [EKG]; R29.6 Repeated falls; G89.29 Other chronic pain; M19.90 Unspecified osteoarthritis, unspecified site; K46.9 Unspecified abdominal hernia without obstruction or gangrene; R55 Syncope and collapse; M25.512 Pain in left shoulder; R00.0 Tachycardia, unspecified; M25.531 Pain in right wrist; I67.9 Cerebrovascular disease, unspecified; R94.01 Abnormal electroencephalogram [EEG]; J45.909 Unspecified asthma, uncomplicated; F41.9 Anxiety disorder, unspecified; M06.9 Rheumatoid arthritis, unspecified; G43.909 Migraine, unspecified, not intractable, without status migrainosus; M54.2 Cervicalgia; I10 Essential (primary) hypertension; Z82.5 Family history of asthma and other chronic lower respiratory diseases; Z80.49 Family history of malignant neoplasm of other genital organs; Z86.14 Personal history of Methicillin resistant Staphylococcus aureus infection; Z79.52 Long term (current) use of systemic steroids; Z88.1 Allergy status to other antibiotic agents; Z79.4 Long term (current) use of insulin; Z88.6 Allergy status to analgesic agent; Z79.899 Other long term (current) drug therapy; Z88.5 Allergy status to narcotic agent; Z87.81 Personal history of (healed) traumatic fracture; Z71.3 Dietary counseling and surveillance; Z90.710 Acquired absence of both cervix and uterus; Z90.49 Acquired absence of other specified parts of digestive tract; Z81.1 Family history of alcohol abuse and dependence; Z90.79 Acquired absence of other genital organ(s); Z87.01 Personal history of pneumonia (recurrent); Z86.19 Personal history of other infectious and parasitic diseases; Z98.51 Tubal ligation status; Z87.19 Personal history of other diseases of the digestive system; Z91.81 History of falling; Z91.19 Patient's noncompliance with other medical treatment and regimen; Z76.5 Malingerer [conscious simulation]
CPT/HCPCS: 36415; 70450; 70553; 71010; 72050; 72125; 72128; 72131; 72170; 80048; 80053; 80177; 81001; 81003; 82009; 82150; 82550; 82553; 83036; 83605; 83690; 83735; 83880; 84484; 85025; 85027; 87502; 93005; 93306; 94640; 95819; 96372; 96374; 96375; 96376; 99284; 99285

== ENCOUNTER 2016-11-19 19:29 | Emergency (ER) | payer MEDICARE ==
[2016-11-19 19:39] VITALS: RESP 18; TEMP 98.8
--- NOTE | 2016-11-19 20:39 | ED ---
General Adult HPI - General Chief complaint: Weakness Stated complaint: weakness Source: patient Mode of arrival: ambulatory Limitations: no limitations - History of Present Illness Initial comments: 66-year-old female presenting for placement into [facility] rehab. She was just seen and evaluated at this facility about a week ago for syncopal episodes and trauma from resulting falls. There is no significant injuries from her falls but on her inpatient workup she was found to have an abnormal EEG and diagnosed with seizures and started on Keppra. Her inpatient echo and MRI brain showed no significant findings. She was sent to subacute rehab but while there her stated that she should leave. Despite her protests she left with her but now she is stating that she thinks she needs to go back. - Related Data Home Medications Medication Instructions Recorded Confirmed Albuterol Inhaler [Ventolin Hfa 2 puff INHALATION RT-Q6H PRN 01/26/16 11/19/16 Inhaler] ALPRAZolam [Xanax] 0.25 mg PO HS 11/19/16 11/19/16 HYDROcodone/APAP 7.5-325MG [[place] 1 tab PO Q8H PRN 11/19/16 11/19/16 7.5-325] Insulin NPH Hum/Reg Insulin Hm 20 unit SQ HS 11/19/16 11/19/16 [NovoLIN 70-30 100 UNIT/ML VIAL] Insulin NPH Hum/Reg Insulin Hm 40 unit SQ QAM 11/19/16 11/19/16 [NovoLIN 70-30 100 UNIT/ML VIAL] Previous Rx's Medication Instructions Recorded Carisoprodol [Soma] 350 mg PO TID PRN #20 tab 11/18/16 Insulin Glargine [Lantus] 50 unit SQ HS vial 11/18/16 levETIRAcetam [Keppra] 500 mg PO Q12HR tab 11/18/16 Allergies Allergy/AdvReac Type Severity Reaction Status Date / Time aspirin AdvReac Mild Nausea & Verified 11/19/16 19:57 Vomiting celecoxib [From Celebrex] AdvReac Mild Nausea & Verified 11/19/16 19:57 Vomiting clarithromycin [From Biaxin] AdvReac Mild Nausea & Verified 11/19/16 19:57 Vomiting cyclobenzaprine HCl AdvReac Mild Nausea & Verified 11/19/16 19:57 [From Flexeril] Vomiting ibuprofen [From Motrin] AdvReac Mild Nausea & Verified 11/19/16 19:57 Vomiting ketorolac tromethamine AdvReac Mild Nausea & Verified 11/19/16 19:57 [From Toradol] Vomiting meperidine HCl [From Demerol] AdvReac Mild Nausea & Verified 11/19/16 19:57 Vomiting metformin AdvReac Mild Nausea & Verified 11/19/16 19:57 Vomiting naproxen [From Naprosyn] AdvReac Mild Nausea & Verified 11/19/16 19:57 Vomiting tetracycline [Tetracycline] AdvReac Mild Nausea & Verified 11/19/16 19:57 Vomiting Review of Systems ROS Statement: Those systems with pertinent positive or pertinent negative responses have been documented in the HPI. ROS Other: All systems not noted in ROS Statement are negative. Constitutional: Denies: fever, chills Eyes: Denies: eye pain, eye discharge ENT: Denies: ear pain, throat pain Respiratory: Denies: cough, dyspnea Cardiovascular: Denies: chest pain, palpitations, dyspnea on exertion Endocrine: Denies: fatigue, polydipsia Gastrointestinal: Denies: abdominal pain, nausea, vomiting Genitourinary: Denies: urgency, dysuria Musculoskeletal: Denies: back pain, arthralgia Skin: Denies: rash, lesions Neurological: Denies: headache, weakness Psychiatric: Denies: anxiety, depression Hematological/Lymphatic: Denies: easy bleeding, swollen glands Past Medical History Past Medical History: Asthma, COPD, Diabetes Mellitus, Hypertension, Osteoarthritis (OA), Pneumonia, Rheumatoid Arthritis (RA), Skin Disorder Additional Past Medical History / Comment(s): IDDM, R gluteal wound- hx of "boils", back pain, chronic pain, back pain with R sided sciatica, DJD, anemia , seasonal allergies, migraines, PVD, bilateral varicosities, bilateral leg edema, numbness/tingling to bilateral hands and feet, abdominal hernia, hx of R ankle fx, past high blood pressure History of Any Multi-Drug Resistant Organisms: MRSA Date of last positivie culture/infection: Vandana Vega, MDRO Source:: 10/02/2013 Past Surgical History: Appendectomy, Cholecystectomy, Hysterectomy, Tubal Ligation Additional Past Surgical History / Comment(s): yuridia 01/27, I&Ds of R gluteal abscess, PICC line in and removed, power port inserted 10/2015, I&Ds of boils, bilateral salpingectomy, Past Anesthesia/Blood Transfusion Reactions: No Reported Reaction Additional Past Anesthesia/Blood Transfusion Reaction / Comment(s): Pt states she has never received blood, has had anesthesia and no problems Past Psychological History: Anxiety Additional Psychological History / Comment(s): Pt resides with her spouse. She ambulates with a cane or a rolling walker with a seat. Smoking Status: Never smoker Past Alcohol Use History: None Reported Past Drug Use History: None Reported Additional Drug Use History / Comment(s): patient denies overuse of her prescribed medications. - Past Family History Mother Family Medical History: Cancer Additional Family Medical History / Comment(s): Mother of uterine cancer at 56 yrs of age. Father Family Medical History: COPD Additional Family Medical History / Comment(s): Father had alcoholism and at age 59 yrs. General Exam Limitations: no limitations General appearance: alert, in no apparent distress Head exam: Present: atraumatic, normocephalic, normal inspection Eye exam: Present: normal appearance, PERRL, EOMI. Absent: scleral icterus, conjunctival injection, periorbital swelling ENT exam: Present: normal exam, mucous membranes moist Neck exam: Present: normal inspection. Absent: tenderness, meningismus, lymphadenopathy Respiratory exam: Present: normal lung sounds bilaterally. Absent: respiratory distress, wheezes, rales, rhonchi, stridor Cardiovascular Exam: Present: regular rate, normal rhythm, normal heart sounds. Absent: systolic murmur, diastolic murmur, rubs, gallop, clicks GI/Abdominal exam: Present: soft, normal bowel sounds. Absent: distended, tenderness, guarding, rebound, rigid Rectal exam: Present: deferred Extremities exam: Present: normal inspection, full ROM, normal capillary refill. Absent: tenderness, pedal edema, joint swelling, calf tenderness Back exam: Present: normal inspection Neurological exam: Present: alert, oriented X3, CN II-XII intact Psychiatric exam: Present: normal affect, normal mood Skin exam: Present: warm, dry, intact, normal color. Absent: rash Course Vital Signs 11/19/16 11/19/16 19:36 20:55 Temperature 98.8 F Pulse Rate 94 87 Respiratory 18 18 Rate Blood Pressure 164/81 155/79 O2 Sat by Pulse 96 97 Oximetry Medical Decision Making - Medical Decision Making 66-year-old female presenting for placement into [facility] rehab. Week ago she was seen in this emergency department and admitted for syncopal moments. During her admission for workup was significant for an abnormal EEG which showed seizures and she was started on Keppra. The rest of her evaluation was benign. She had her self discharged from the rehab early at the request of her but now she stating she wants to go back. She was informed that community mental health social worker here in the hospital would not be available until Monday and that she met no criteria for admission. She was further informed that she would not be able to be admitted from the ED directly. Her physical exam revealed no acute abnormalities and there was no indication for any further workup. She was informed that she would be discharged with instructions to follow-up with her primary care physician but to return if her symptoms should worsen or persist. She was advised to continue taking her Keppra as prescribed and to follow-up with her neurologist as well. She acknowledged an understanding of this information and agreed with this plan of care. Disposition Clinical Impression: Encounter for rehabilitation Disposition: HOME SELF-CARE Condition: Stable Additional Instructions: Please follow up with your primary care physician. He will also be provided with one a few are no longer seeing your current provider. At this time placement back to [facility] cannot the placed as there is no rehab in the hospital at this time. Please continue to take your Keppra as indicated by her neurologist. If your symptoms should worsen or persist or usually a breakthrough seizures please return to the ED for further treatment and evaluation. Referrals: None,Stated [Primary Care Provider] - 1-2 days Time of Disposition: 20:39
[2016-11-19 20:58] VITALS: BP 155/79; PULSE 87
== END 2016-11-19 20:55 | disposition home or self-care (01) ==
LOC: EC 19:29
DX: R53.1 Weakness (principal); Z01.89 Encounter for other specified special examinations; E11.9 Type 2 diabetes mellitus without complications; F41.9 Anxiety disorder, unspecified; Z88.1 Allergy status to other antibiotic agents; Z88.5 Allergy status to narcotic agent; Z88.6 Allergy status to analgesic agent; Z88.8 Allergy status to other drugs, medicaments and biological substances; Z79.4 Long term (current) use of insulin; Z79.899 Other long term (current) drug therapy
CPT/HCPCS: 99284

== ENCOUNTER 2016-11-20 09:36 | Observation (INO) | payer MEDICARE ==
[2016-11-20] MEDS ORDERED: SODIUM CHLORIDE 0.9% 1,000 ML IV ONE (10:25)
--- NOTE | 2016-11-20 10:31 | ED ---
Fall HPI - General Chief Complaint: Fall Stated Complaint: Fall/Back Pain Time Seen by Provider: 11/20/16 10:07 Source: patient, EMS Mode of arrival: EMS - History of Present Illness Initial Comments: 66-year-old female presents with stating that she fell today. She states that she tripped and struck her head on the toilet she thinks she may have been knocked out for a minute. She has no nausea she has a sore head. She states that it aggravated her back problem she got up and then fell again on and hit the bathtub. She's recently been hospitalized was diagnosed with seizure disorder placed on Keppra. She is an insulin-dependent diabetic with hypertension she has not seen a doctor for the last 6 months to a year she obtains medications through the emergency room she was placed into rehab however her talked her out of it per the old chart. She denies any new focal numbness or weakness no nausea or vomiting complains some blurry vision. She is running out of her insulin today. She has chronic back pain is out of her medication. She does not wish to have x-rays. She has no new focal numbness or weakness she states the pain is similar to what she has had but only worsen. - Related Data Home Medications Medication Instructions Recorded Confirmed Albuterol Inhaler [Ventolin Hfa 2 puff INHALATION RT-Q6H PRN 01/26/16 11/20/16 Inhaler] ALPRAZolam [Xanax] 0.25 mg PO HS 11/19/16 11/20/16 HYDROcodone/APAP 7.5-325MG [[place] 1 tab PO Q8H PRN 11/19/16 11/20/16 7.5-325] Insulin NPH Hum/Reg Insulin Hm 20 unit SQ HS 11/19/16 11/20/16 [NovoLIN 70-30 100 UNIT/ML VIAL] Insulin NPH Hum/Reg Insulin Hm 40 unit SQ QAM 11/19/16 11/20/16 [NovoLIN 70-30 100 UNIT/ML VIAL] Previous Rx's Medication Instructions Recorded Carisoprodol [Soma] 350 mg PO TID PRN #20 tab 11/18/16 Insulin Glargine [Lantus] 50 unit SQ HS vial 11/18/16 levETIRAcetam [Keppra] 500 mg PO Q12HR tab 11/18/16 Allergies Allergy/AdvReac Type Severity Reaction Status Date / Time aspirin AdvReac Mild Nausea & Verified 11/20/16 13:06 Vomiting celecoxib [From Celebrex] AdvReac Mild Nausea & Verified 11/20/16 13:06 Vomiting clarithromycin [From Biaxin] AdvReac Mild Nausea & Verified 11/20/16 13:06 Vomiting cyclobenzaprine HCl AdvReac Mild Nausea & Verified 11/20/16 13:06 [From Flexeril] Vomiting ibuprofen [From Motrin] AdvReac Mild Nausea & Verified 11/20/16 13:06 Vomiting ketorolac tromethamine AdvReac Mild Nausea & Verified 11/20/16 13:06 [From Toradol] Vomiting meperidine HCl [From Demerol] AdvReac Mild Nausea & Verified 11/20/16 13:06 Vomiting metformin AdvReac Mild Nausea & Verified 11/20/16 13:06 Vomiting naproxen [From Naprosyn] AdvReac Mild Nausea & Verified 11/20/16 13:06 Vomiting tetracycline [Tetracycline] AdvReac Mild Nausea & Verified 11/20/16 13:06 Vomiting Review of Systems ROS Statement: Those systems with pertinent positive or pertinent negative responses have been documented in the HPI. ROS Other: All systems not noted in ROS Statement are negative. Past Medical History Past Medical History: Asthma, COPD, Diabetes Mellitus, Hypertension, Osteoarthritis (OA), Pneumonia, Rheumatoid Arthritis (RA), Skin Disorder Additional Past Medical History / Comment(s): IDDM, R gluteal wound- hx of "boils", back pain, chronic pain, back pain with R sided sciatica, DJD, anemia , seasonal allergies, migraines, PVD, bilateral varicosities, bilateral leg edema, numbness/tingling to bilateral hands and feet, abdominal hernia, hx of R ankle fx, past high blood pressure History of Any Multi-Drug Resistant Organisms: MRSA Date of last positivie culture/infection: Vandana Vega, CHARLIEO Source:: 10/02/2013 Past Surgical History: Appendectomy, Cholecystectomy, Hysterectomy, Tubal Ligation Additional Past Surgical History / Comment(s): yuridia 01/27, I&Ds of R gluteal abscess, PICC line in and removed, power port inserted 10/2015, I&Ds of boils, bilateral salpingectomy, Past Anesthesia/Blood Transfusion Reactions: No Reported Reaction Additional Past Anesthesia/Blood Transfusion Reaction / Comment(s): Pt states she has never received blood, has had anesthesia and no problems Past Psychological History: Anxiety Additional Psychological History / Comment(s): Pt resides with her spouse. She ambulates with a cane or a rolling walker with a seat. Smoking Status: Never smoker Past Alcohol Use History: None Reported Past Drug Use History: None Reported Additional Drug Use History / Comment(s): patient denies overuse of her prescribed medications. - Past Family History Mother Family Medical History: Cancer Additional Family Medical History / Comment(s): Mother of uterine cancer at 56 yrs of age. Father Family Medical History: COPD Additional Family Medical History / Comment(s): Father had alcoholism and at age 59 yrs. General Exam Limitations: no limitations General appearance: alert, in no apparent distress Head exam: Present: atraumatic Eye exam: Present: PERRL, EOMI ENT exam: Present: normal oropharynx, mucous membranes dry, mucous membranes moist Neck exam: Present: normal inspection Respiratory exam: Present: normal lung sounds bilaterally Cardiovascular Exam: Present: regular rate, normal rhythm, normal heart sounds GI/Abdominal exam: Present: soft, distended Back exam: Present: tenderness (Low lumbar negative straight leg raising most feet well.) Neurological exam: Present: alert, CN II-XII intact Psychiatric exam: Present: normal affect, normal mood Skin exam: Present: warm, dry Course Vital Signs 11/20/16 11/20/16 11/20/16 09:40 10:56 13:30 Temperature 97.4 F L Pulse Rate 85 88 86 Respiratory 18 18 20 Rate Blood Pressure 155/69 162/75 170/80 O2 Sat by Pulse 95 99 Oximetry Medical Decision Making - Medical Decision Making Patient has recurrent falling workup previously however there is any issue of safety we have spoken to the hospitalist and will admit. - Lab Data Result diagrams: 11/20/16 11:44 11/20/16 11:44 Lab Results 11/20/16 11/20/16 Range/Units 11:44 11:44 WBC 4.3 (3.8-10.6) k/uL RBC 4.49 (3.80-5.40) m/uL Hgb 13.0 (11.4-16.0) gm/dL Hct 38.3 (34.0-46.0) % MCV 85.3 (80.0-100.0) fL MCH 28.9 (25.0-35.0) pg MCHC 33.8 (31.0-37.0) g/dL RDW 14.3 (11.5-15.5) % Plt Count 152 (150-450) k/uL Neutrophils % 64 % Lymphocytes % 26 % Monocytes % 6 % Eosinophils % 2 % Basophils % 0 % Neutrophils # 2.7 (1.3-7.7) k/uL Lymphocytes # 1.1 (1.0-4.8) k/uL Monocytes # 0.3 (0-1.0) k/uL Eosinophils # 0.1 (0-0.7) k/uL Basophils # 0.0 (0-0.2) k/uL Sodium 139 (137-145) mmol/L Potassium 5.0 (3.5-5.1) mmol/L Chloride 106 (98-107) mmol/L Carbon Dioxide 24 (22-30) mmol/L Anion Gap 9 mmol/L BUN 12 (7-17) mg/dL Creatinine 0.49 L (0.52-1.04) mg/dL Est GFR (MDRD) Af Amer >60 (>60 ml/min/1.73 sqM) Est GFR (MDRD) Non-Af >60 (>60 ml/min/1.73 sqM) Glucose 244 H (74-99) mg/dL Calcium 9.2 (8.4-10.2) mg/dL Total Bilirubin 0.9 (0.2-1.3) mg/dL AST 45 H (14-36) U/L ALT <6 L (9-52) U/L Alkaline Phosphatase 101 (38-126) U/L Total Protein 7.0 (6.3-8.2) g/dL Albumin 3.7 (3.5-5.0) g/dL Disposition Clinical Impression: Falling episodes, IDDM (insulin dependent diabetes mellitus) Disposition: ADMITTED IP TO THIS [facility] Condition: Fair Time of Disposition: 14:36
[2016-11-20] MEDS ORDERED: HYDROcodone/APAP 10-325MG 1 EACH TAB PO STA (10:42)
[2016-11-20 12:05] LABS: Basophils % (A) 0 %; CH 28.3; CHCM 33.4; Eosinophils # (A) 0.1 k/uL (0-0.7); Eosinophils % (A) 2 %; HCT 38.3 % (34.0-46.0); HDW 3.24; Luc % (Auto) 2; Lymphocytes # (A) 1.1 k/uL (1.0-4.8); Lymphocytes % (A) 26 %; MCH 28.9 pg (25.0-35.0); MCHC 33.8 g/dL (31.0-37.0); MCV 85.3 fL (80.0-100.0); Mean Platelet Volume 8.1; Monocytes # (A) 0.3 k/uL (0-1.0); Monocytes % (A) 6 %; Neutrophils # (A) 2.7 k/uL (1.3-7.7); Neutrophils % (A) 64 %; RBC 4.49 m/uL (3.80-5.40); RDW 14.3 % (11.5-15.5); WBC 4.3 k/uL (3.8-10.6); WBC (Perox) 4.61
[2016-11-20 12:34] LABS: ALT <6 U/L (9-52); AST 45 U/L (14-36); Alkaline Phosphatase 101 U/L (38-126); Anion Gap 9 mmol/L; Blood Urea Nitrogen 12 mg/dL (7-17); Calcium 9.2 mg/dL (8.4-10.2); Carbon Dioxide 24 mmol/L (22-30); Chloride 106 mmol/L (98-107); Glucose 244 mg/dL (74-99); Non-African American GFR(MDRD) >60 (>60 ml/min/1.73 sqM); Sodium 139 mmol/L (137-145); Total Bilirubin 0.9 mg/dL (0.2-1.3)
[2016-11-20] MEDS ORDERED: INSULIN LISPRO (humaLOG) 300 UNIT/3 ML VIAL SQ ONE (13:30)
[2016-11-20] MEDS ORDERED: SODIUM CHLORIDE 0.9% 1,000 ML IV STA (14:34)
[2016-11-20] MEDS ORDERED: NALOXONE 0.4 MG/ML 1 ML VIAL IV PRN (14:36)
[2016-11-20] MEDS ORDERED: ALBUTEROL NEBULIZED 2.5 MG/3 ML INHALATION PRN (14:40)
[2016-11-20 15:08] LABS: Glucose,Whole Blood 254 mg/dL (75-99)
[2016-11-20 16:02] VITALS: BMI 34.0
[2016-11-20 16:58] LABS: Glucose,Whole Blood 180 mg/dL (75-99)
[2016-11-20] MEDS: INSULIN LISPRO (humaLOG) 300 UNIT/3 ML VIAL SQ SCH ×2 (16:59→21:25)
[2016-11-20 20:30] LABS: Glucose,Whole Blood 273 mg/dL (75-99)
[2016-11-20] MEDS: ALPRAZolam 0.25 MG TAB PO SCH (21:21)
[2016-11-20] MEDS: HYDROcodone/APAP 7.5-325MG 1 EACH TAB PO PRN (21:21)
[2016-11-20] MEDS: levETIRAcetam 500 MG TAB PO SCH (21:23)
[2016-11-20] MEDS: INSULIN NPH/REG INSULIN 70/30 300 UNIT/3 ML VIAL SQ SCH (21:23)
[2016-11-21] MEDS: HYDROcodone/APAP 7.5-325MG 1 EACH TAB PO PRN ×3 (05:37→22:38)
[2016-11-21 06:46] LABS: Glucose,Whole Blood 164 mg/dL (75-99)
[2016-11-21] MEDS: levETIRAcetam 500 MG TAB PO SCH ×2 (07:48→20:03)
[2016-11-21] MEDS: INSULIN NPH/REG INSULIN 70/30 300 UNIT/3 ML VIAL SQ SCH ×2 (07:49→20:03)
[2016-11-21] MEDS: INSULIN LISPRO (humaLOG) 300 UNIT/3 ML VIAL SQ SCH ×4 (07:49→20:03)
[2016-11-21 08:03] LABS: Basophils % (A) 0 %; CH 27.6; CHCM 32.5; Eosinophils # (A) 0.1 k/uL (0-0.7); Eosinophils % (A) 2 %; HCT 35.4 % (34.0-46.0); HDW 3.21; HGB 11.8 gm/dL (11.4-16.0); Hypochromasia Slight; Luc # (Auto) 0.15; Luc % (Auto) 4; Lymphocytes # (A) 1.6 k/uL (1.0-4.8); Lymphocytes % (A) 39 %; MCH 28.4 pg (25.0-35.0); MCHC 33.3 g/dL (31.0-37.0); MCV 85.4 fL (80.0-100.0); Mean Platelet Volume 7.3; Monocytes # (A) 0.3 k/uL (0-1.0); Monocytes % (A) 7 %; Neutrophils % (A) 49 %; RBC 4.15 m/uL (3.80-5.40); RDW 14.2 % (11.5-15.5); WBC (Perox) 3.82
[2016-11-21 08:29] LABS: Anion Gap 9 mmol/L; Blood Urea Nitrogen 11 mg/dL (7-17); Carbon Dioxide 23 mmol/L (22-30); Chloride 108 mmol/L (98-107); Glucose 155 mg/dL (74-99); Non-African American GFR(MDRD) >60 (>60 ml/min/1.73 sqM); Potassium 3.8 mmol/L (3.5-5.1); Sodium 140 mmol/L (137-145)
[2016-11-21 11:56] LABS: Glucose,Whole Blood 175 mg/dL (75-99)
[2016-11-21 15:02] LABS: Hemoglobin A1C 14.3 % (4.2-6.1)
--- NOTE | 2016-11-21 15:05 | HP ---
DATE OF ADMISSION: DATE OF SERVICE: 11/20/2016 CHIEF COMPLAINT: Frequent falls. HISTORY OF PRESENT ILLNESS: Ms. Johnson is a 66-year-old female with a past medical history of diabetes, chronic diarrhea, who came into the hospital after having frequent falls at home. The patient had a recent hospital stay and was discharged 2 days back to her rehab place, but from the rehab the patient left AMA and went home. After going home, patient had 3 to 4 falls and so came into the hospital for further evaluation. When the patient was here on the last visit she was diagnosed with new onset seizures and started on Keppra. But when she left the rehab center and at home she was not taking her seizure medications. She states that when she had the fall there was loss of bladder a couple of times and loss of her bowel movement once when she had these falls at home. Patient states that she does not have a primary care physician and she usually comes to the ER for her diabetic supplies. She is very noncompliant with her medications. She denies having any fevers, chills, rigors. No nausea, vomiting or new onset diarrhea. She states that she has chronic diarrhea. Patient denies having any injury at the time of having falls. She states that she was supposed to be in rehab but when her came to see her at the rehab, they decided that she would go home with him, but she was not taking any of her medications that she is supposed to be. REVIEW OF SYSTEMS: CONSTITUTIONAL: Denies having any fevers, chills, or rigors. RESPIRATORY: No cough. No difficulty in breathing. CARDIAC: No chest pain or palpations. NEUROLOGICAL: As per HPI. : No dysuria or hematuria. ASSOCIATE PROFESSOR OF CHEMISTRY: Patient has frequent falls with some loss of consciousness but no evident injury is noted on the physical exam. HEMATOLOGICAL: No history of recurrent infections or easy bruising. All 13 review of systems are done and are negative except for ones mentioned in the HPI. Past medical history is significant for COPD, diabetes mellitus, hypertension, osteoarthritis, rheumatoid arthritis. PAST SURGICAL HISTORY: Appendectomy, cholecystectomy, hysterectomy, tubal ligation. PAST PSYCHIATRIC HISTORY: Positive for anxiety disorder. SOCIAL HISTORY: Denies having any smoking or alcohol abuse or any other drug. FAMILY HISTORY: Significant for uterine cancer in her mother who at age of 56 and father has COPD. Patient's allergies to ASPIRIN, CELEBREX, CLARITHROMYCIN, FLEXERIL, MOTRIN, TORADOL, MEPERIDINE, METFORMIN, NAPROXEN, TETRACYCLINE. PATIENT'S HOME MEDICATIONS: 1. Albuterol 1 to 2 puffs p.r.n. for shortness of breath. 2. Soma 350 mg p.o. 3 times a day p.r.n. for pain. 3. Lantus 50 units q.h.s. 4. Keppra 500 mg b.i.d. 5. [place] 7.5/325 one tablet q.8 hours p.r.n. for pain. 6. Xanax 0.25 mg p.o. q.h.s. s 7. NovoLog 70/30 forty units in the morning and twenty units at night. On examination, patient's vital signs, temperature 97.9, heart rate 94, respiratory rate 16, blood pressure 175/85, saturating at 100% on room air. GENERAL EXAMINATION: Patient does not appear to be in any acute distress. HEAD: Atraumatic, normocephalic. EYES: Pupils, round, and reactive to light. No pallor. No icterus. NECK: No JVD. No thyromegaly. CARDIOVASCULAR: S1, S2 heard. No additional sounds. PULMONARY: Chest is clear to examination. No wheezes or crackles. ABDOMEN: Soft, nontender. Bowel sounds are positive, no palpable organomegaly. MUSCULOSKELETAL: No joint swelling or deformity. EXTREMITIES: No cyanosis. No clubbing, no edema. NEUROLOGICAL: ASSOCIATE PROFESSOR OF CHEMISTRY did not reveal any focal neurological deficits. MUSCULOSKELETAL: No joint swelling or deformity. SKIN: No rashes. PSYCHIATRIC: Appropriate mood and affect. PATIENT'S LABS: Sodium is 139, potassium 5, chloride 106, bicarb 24, BUN 12, creatinine 0.49, AST 45, ALT less than 6, albumin is 3.7, white count of 4.3, hemoglobin is 13, platelets of 152. Patient had a recent MRI of the brain done, which was showing chronic small vessel disease with a diffuse cerebral atrophy. She also had an EEG done on the sixth of this month showing right temporal epileptiform discharges lasting for 3 to 4 seconds duration on multiple ( ) which is suggestive of possible seizure disorder for deep level origin. ASSESSMENT AND PLAN: 1. Recurrent falls can be secondary to her seizures as she has been noncompliant with the seizure medications that she has been started on. 2. New onset seizures, recently diagnosed last week. 3. Type 2 diabetes mellitus, poorly controlled. 4. Chronic diarrhea. 5. Ascending aortic aneurysm measuring 3.7 cm. PLAN: The plan is to restart the patient on her home medications. Will start her on Keppra and have Neurology consult. Her recurrent falls might be due to an underlying seizure activity as she is noncompliant with her medications. Will restart her insulin. Overall prognosis is guarded. It was discussed with the patient that she has to be compliant with the seizure medications. Will have oncology social worker on board for possible rehab placement again. Further recommendations to follow depending on the progress of the patient.
[2016-11-21 16:42] LABS: Glucose,Whole Blood 168 mg/dL (75-99)
[2016-11-21 19:59] LABS: Glucose,Whole Blood 288 mg/dL (75-99)
[2016-11-21] MEDS: ALPRAZolam 0.25 MG TAB PO SCH (20:03)
--- NOTE | 2016-11-21 22:17 | PN ---
DATE OF SERVICE: 11/21/2016 INTERVAL HISTORY: Ms. Johnson is a 66-year-old female with a past medical history of diabetes, chronic diarrhea, who came into the hospital with the chief complaint of frequent falls at home. Patient was recently discharged to a rehab center but left from there AMA and went home. Then she had 3 to 4 falls with loss of control of her bowel and bladder. She eventually came into the hospital for further evaluation. As per discussion with the social media community manager, patient and her are not able to take care of themselves so keep calling EMS for help and they come to the hospital. So a psychiatric evaluation will be obtained to check the competency of the patient. As per the social media community manager, we are also trying to find guardianship for her. Today she was sitting comfortably in the bed, having her lunch, and she stated that she was in a lot of pain in her back, but she is resting comfortably in her bed. REVIEW OF SYSTEMS: CONSTITUTIONAL: Denies any fever, chills or rigors. RESPIRATORY: No cough. No difficulty in breathing. GI: No abdominal pain, nausea, vomiting or diarrhea. : No dysuria or hematuria. On examination, patient's vitals include temperature 97.8, heart rate 88, respiratory rate 16, blood pressure 145/88. Saturating at 98% on room air. GENERAL EXAMINATION: Patient appears to be in no acute distress. She is very comfortably sitting up in her bed; ate all her lunch. HEAD: Atraumatic, normocephalic. EYES: Pupils round and reactive to light. No pallor. No icterus. NECK: No JVD. No thyromegaly. CARDIOVASCULAR: S1, S2 heard. No additional sounds. PULMONARY: Chest is clear to examination. No wheezing or crackles. ABDOMEN: Soft. Bowel sounds positive. No organomegaly. MUSCULOSKELETAL: No joint swelling or deformity. EXTREMITIES: No cyanosis. No clubbing or edema. NEUROLOGICAL: Did not reveal any focal neurological deficits. SKIN: No rashes. PATIENT'S LABS: White count of 4, hemoglobin 11.8, platelets of 174. Sodium 140, potassium 3.8, chloride 108, bicarb 23. BUN 11, creatinine 0.49. ASSESSMENT AND PLAN: 1. Recurrent falls; can be due to her seizure history, as she is noncompliant with her seizure medication that she has been started on. 2. New-onset seizures, recently diagnosed. 3. Type 2 diabetes mellitus, poorly controlled. 4. Chronic diarrhea. 5. Descending aortic aneurysm measuring 3.7 mm. PLAN: The patient has been restarted on her home medications; has been started on Keppra as per neurology recommendations during her last visit. Will obtain a psychiatric evaluation for competency. Had a discussion with the social media community manager this morning regarding obtaining guardianship, as both she and her are unable to take care of themselves. Further recommendations to follow depending on the progress of the patient.
[2016-11-22] MEDS: HYDROcodone/APAP 7.5-325MG 1 EACH TAB PO PRN ×3 (06:31→21:17)
[2016-11-22 07:09] LABS: Glucose,Whole Blood 145 mg/dL (75-99)
[2016-11-22] MEDS: levETIRAcetam 500 MG TAB PO SCH ×2 (07:30→21:15)
[2016-11-22] MEDS: INSULIN NPH/REG INSULIN 70/30 300 UNIT/3 ML VIAL SQ SCH ×2 (07:31→21:15)
[2016-11-22] MEDS: INSULIN LISPRO (humaLOG) 300 UNIT/3 ML VIAL SQ SCH ×4 (07:33→21:17)
[2016-11-22 11:02] LABS: Glucose,Whole Blood 218 mg/dL (75-99)
--- NOTE | 2016-11-22 15:01 | P.CN ---
Psychiatric Consult - . Consult date: 11/22/16 Consult:: IDENTIFYING DATA: She is a 66-year-old female admitted to medicine service after falling at home. HISTORY OF PRESENT ILLNESS: According to the medical record, she had 3 or 4 falls before presenting to the ER. Medicine service discharged her on 2016 with the diagnoses of syncopal due to intervascular volume depleted depletion secondary to diarrhea and elevated blood glucose, tachycardia, diarrhea secondary to viral gastroenteritis, changes in EEG with some epilepiform foci in the temporal lobe and and ascending aortic aneurysm. She was discharged to subacute rehabilitation but, according to record, left the program AGAINST MEDICAL ADVICE. Medicine consulted psychiatry to evaluate competency. Mr. Johnson told me that she has several medical problems including diabetes, diarrhea, frequent falling and arthritis. She neglected to mention the ascending aortic aneurysm or the new onset of a seizure diagnosis. She explained that she came to the ER because she was falling at home. She stated that she falls because she feels "dizzy" and unsteady at times.. She talked about not having a primary physician and using the emergency room as her primary source of medical care. She cannot recall what her doctors told her about her health, recommended treatment and possible risks and benefits of the treatment. However, she alleged that once informed of the treatment she would follow recommended treatment occurring compliance with prescribed diabetic medications. She talked about the referral to the subacute rehabilitation program and a discussion with her physician about a recommendation for a usp. She stated that she would prefer not to go to a usp but would follow the recommendation if it's the only option. PAST PSYCHIATRIC HISTORY: She denied a history of mental health treatment. She denied psychiatric hospitalizations. PAST MEDICAL HISTORY: According to the EMR, she has had 6 presentation to the ER so far this year and 39 presentations and 2016. She presented with various complaints that could've been addressed in a primary care office. She has had several months with multiple visits SUBSTANCE USE HISTORY: She denied use of alcohol or drugs. She denied involvement in substance abuse treatment. FAMILY PSYCHIATRIC/SUBSTANCE USE HISTORY: Her son has a history of substance use problems. SOCIAL HISTORY: She was born in [facility] and immigrated with her family to the [place] when she was 6 years old. She talked about being raised by her parents in [place] and several other cities in [place]. She has 2 children, a boy and a girl, out of wedlock. Her son is currently in half-way for probation violation and possession of methamphetamine. 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 She has been very to her current for 20 years. They lost an apartment 2 years ago independent living in a motel.. MENTAL STATUS EXAM: She presented as a obese 66-year-old female who was pleasant on approach. She is laying comfortably in bed. She made eye contact and appeared to attend to the interview. She had no distinguishing features or prominent physical abnormalities. She had a blunted but bright facial expression. She was alert and oriented to person, place and time. She showed no abnormality of psychomotor activity. She had no abnormal involuntary movements. Her speech was spontaneous with normal rate, rhythm and volume. She had no articulation difficulty. Her affect was blunted but stable and appropriate. She denied suicidal ideation or wishes. She denied homicidal ideation. She denied depressive cognitions such as hopelessness, helplessness or worthlessness. She not express phobias, ideas of reference, paranoid ideation or delusional beliefs. She ruminated about her health and her living situation. Her thinking was concrete but her associations were coherent and logical. She did not demonstrate clang associations, perseveration , neologisms or blocking. She denied hallucinations and did not appear to be responding to internal stimuli We completed the Mini-Mental State Examination. Her total score was 27. Score less than 27 is consistent with impaired cognitive functioning. She knew the she knew the date, month, year and season. She was oriented to country, state, town, hospital but not floor. She was able to register 3 memory words (Robert, table and coin). She was able to spell the word "world" backwards. She remembered only 1 of the 3 memory words after distraction exercise. She is able to name a pencil and watch. She is able to repeat the phrase no if's, ands or buts). She is able to follow 3 stage command, read and obey a sentence , write a sentence and copy the intersecting pentagrams. IMPRESSIONS: She is a 66-year-old woman with multiple medical problems, frequent visits to the emergency room and frequent falling. She presented to the Medical Center, again, after falling at home. There is concern that she has not been compliant with medical care. For example, she left the subacute rehabilitation program against medical advise and stopped the prescription of Keppra for the treatment of the recently diagnosed seizure disorder. During our interview she alleged that her physician did not communicate a choice regarding treatment. She appreciates her medical situation, understands some of the relevant information about her health and medical problems, and discussed reason for treatment options. However, her understanding of her medical problems and treatment did not seem as sophisticated as one would expect for someone with training as a nurse. Her performance on the Mini-Mental state exam showed some impairment in short-term memory but her overall performance was not consistent with a dementia. PLAN: She is cognitively intact, understands information about her health, appreciates her health conditions and gives reasons for treatment options. She is competent to make decisions about her health treatment needs. I suspect that her frequent visits to the ER are more related to social issues and competency or cognitive functioning. 11/22/16 14:28
--- NOTE | 2016-11-22 17:15 | P.PN ---
Subjective 66-year-old female who comes in to the hospital with multiple admissions due to frequent falls. Patient currently has a history of seizure disorder was discharged to a rehab center however left AGAINST MEDICAL ADVICE as patient thought her couldn't take care of her even though at this time she verbalizes to understand that he is not healthy enough to help her with her medical situation. Today she states that she understands that she needs to go to a rehab place and improve prior to attempting to go home. States that she does not have any dizziness she was able to ambulate is having any headaches, blurry vision, nausea, vomiting. On attempted asked the patient if once she goes to the rehab and her gait isn' t. She would leave against medical she states no at this time Objective - Vital Signs Vital signs: Vital Signs Temp 97.7 F 11/22/16 15:00 Pulse 94 11/22/16 15:49 Resp 22 11/22/16 15:49 BP 123/84 11/22/16 15:00 Pulse Ox 100 11/22/16 15:00 Intake & Output 11/21/16 11/22/16 11/22/16 18:59 06:59 18:59 Intake Total 600 600 Output Total 4 4 Balance -4 600 596 Weight 89.811 kg 89.811 kg Intake: Intake, IV Titration 400 Amount Sodium Chloride 0.9% 1, 400 000 ml @ 50 mls/hr IV . Q20H STA Rx#:[id number] Oral 200 600 Output: Urine 4 4 Other: Voiding Method Toilet Toilet Toilet # Voids 1 1 # Bowel Movements 1 - Exam Physical exam Gen. appearance oriented 3 in no distress Neck is supple no JVD Lungs good air entry clear to auscultation no rhonchi or wheezing Heart S1-S2 heard regular rate and rhythm no murmurs appreciated Abdomen is soft nontender no organomegaly bowel sounds are intact Neurologically cranial nerves II-12 grossly intact no focal motor or sensory deficits noted. Recollects 3 objects after 10 minutes No dysdiadochokinesia Skin no abnormalities appreciated - Labs CBC & Chem 7: 11/21/16 07:19 11/21/16 07:19 Labs: Abnormal Lab Results - Last 24 Hours (Table) 11/21/16 11/22/16 11/22/16 Range/Units 19:56 06:57 11:01 POC Glucose (mg/dL) 288 H 145 H 218 H (75-99) mg/dL Assessment and Plan Plan: Recurrent falls this likely might be due to deconditioning #2 new-onset seizure disorder however noncompliant with medications #3 type 2 diabetes poorly controlled #4 descending aortic aneurysm #5 chronic diarrhea Plan Continue Keppra at this time. There is some question about patient being able to care for herself and her being able to help her as well question of patient being medically able to make her own decisions was made initially on admission. Psych recommendations are reviewed. However as there were instances in the past. Patient left against medical advise multiple times for guardianship is being approached by the nephrology social worker which is appropriate Continue current medications patient should be discharged to a rehab facility in [facility] where her daughter lives as patient would have additional family assistance as well.
[2016-11-22 17:18] LABS: Glucose,Whole Blood 134 mg/dL (75-99)
[2016-11-22 20:04] LABS: Glucose,Whole Blood 244 mg/dL (75-99)
[2016-11-22] MEDS: ALPRAZolam 0.25 MG TAB PO SCH (21:15)
[2016-11-23 07:02] LABS: Glucose,Whole Blood 136 mg/dL (75-99)
[2016-11-23 08:13] VITALS: PULSE 89; RESP 16; TEMP 97.5
[2016-11-23 08:14] VITALS: BP 141/87
[2016-11-23] MEDS: INSULIN LISPRO (humaLOG) 300 UNIT/3 ML VIAL SQ SCH ×2 (08:34→12:44)
[2016-11-23] MEDS: INSULIN NPH/REG INSULIN 70/30 300 UNIT/3 ML VIAL SQ SCH (08:35)
[2016-11-23] MEDS: HYDROcodone/APAP 7.5-325MG 1 EACH TAB PO PRN ×2 (08:38→16:34)
[2016-11-23] MEDS: levETIRAcetam 500 MG TAB PO SCH (08:41)
[2016-11-23 11:14] LABS: Glucose,Whole Blood 209 mg/dL (75-99)
--- NOTE | 2016-11-23 15:46 | P.DS ---
Providers Date of admission: 11/20/16 14:41 Attending physician: Noelle España Consults: 11/21/16 12:57 Consult Physician Routine Consulting Provider: Romain Benjamin Reason/Comments: compitency. recent discharge to [facility]. pt left ama and readmit Do you want consulting provider notified?: Yes Primary care physician: Stated None Hospital Course: 66-year-old female who comes in to the hospital with multiple admissions due to frequent falls. Patient currently has a history of seizure disorder was discharged to a rehab center however left AGAINST MEDICAL ADVICE as patient thought her could take care of her even though at this time she verbalizes to understand that he is not healthy enough to help her with her medical situation. she states that she understands that she needs to go to a rehab place and improve prior to attempting to go home. States that she does not have any dizziness she was able to ambulate is having any headaches, blurry vision, nausea, vomiting. Today patient states that she will not leave AGAINST MEDICAL ADVICE I did discuss the patient has a legal guardian at this time and that her being transferred to rehab close to her family would also help in her social issues. Patient does have some underlying depression. - Exam Physical exam Gen. appearance oriented 3 in no distress Neck is supple no JVD Lungs good air entry clear to auscultation no rhonchi or wheezing Heart S1-S2 heard regular rate and rhythm no murmurs appreciated Abdomen is soft nontender no organomegaly bowel sounds are intact Neurologically cranial nerves II-12 grossly intact no focal motor or sensory deficits noted. Recollects 3 objects after 10 minutes No dysdiadochokinesia Skin no abnormalities appreciated Assessment and Plan Plan: Recurrent falls this likely might be due to deconditioning #2 new-onset seizure disorder however noncompliant with medications #3 type 2 diabetes poorly controlled #4 descending aortic aneurysm #5 chronic diarrhea Plan Continue Keppra at this time. Patient will be discharged to a group home. This is for rehab and ADL support. Patient lives with her was not able to care for himself either. Patient left AGAINST MEDICAL ADVICE from her prior facility at which point she was actually admitted for deconditioning causing falls. Patient currently has a legal guardian. Patient is stable at discharge. Medications were prescribed.. Patient Condition at Discharge: Fair Plan - Discharge Summary New Discharge Prescriptions: ALPRAZolam [Xanax] 0.25 mg PO HS #30 tab Carisoprodol [Soma] 350 mg PO TID PRN #20 tab PRN Reason: Muscle Spasm HYDROcodone/APAP 7.5-325MG [[place] 7.5-325] 1 tab PO Q8H PRN #30 tab PRN Reason: Pain Discharge Medication List Albuterol Inhaler [Ventolin Hfa Inhaler] 2 puff INHALATION RT-Q6H PRN 01/26/16 [ History] levETIRAcetam [Keppra] 500 mg PO Q12HR tab 11/18/16 [Rx] Insulin NPH Hum/Reg Insulin Hm [NovoLIN 70-30 100 UNIT/ML VIAL] 20 unit SQ HS [History] Insulin NPH Hum/Reg Insulin Hm [NovoLIN 70-30 100 UNIT/ML VIAL] 40 unit SQ QAM 11/19/16 [History] ALPRAZolam [Xanax] 0.25 mg PO HS #30 tab 11/23/16 [Rx] Carisoprodol [Soma] 350 mg PO TID PRN #20 tab 11/23/16 [Rx] HYDROcodone/APAP 7.5-325MG [[place] 7.5-325] 1 tab PO Q8H PRN #30 tab 11/23/16 [Rx ] Follow up Appointment(s)/Referral(s): None,Stated [Primary Care Provider] - 1-2 days Discharge Disposition: TRANSFER TO SNF/ECF
== END 2016-11-23 17:05 ==
LOC: EC 09:36 → 5MS5E 14:41
PROVIDERS: ADMIT Internal Medicine; ATTEND Internal Medicine
DX: R29.6 Repeated falls (principal); G40.909 Epilepsy, unspecified, not intractable, without status epilepticus; E11.65 Type 2 diabetes mellitus with hyperglycemia; I71.2 Thoracic aortic aneurysm, without rupture; R51 Headache; F41.9 Anxiety disorder, unspecified; E11.51 Type 2 diabetes mellitus with diabetic peripheral angiopathy without gangrene; K52.9 Noninfective gastroenteritis and colitis, unspecified; F32.9 Major depressive disorder, single episode, unspecified; G89.29 Other chronic pain; M54.9 Dorsalgia, unspecified; J44.9 Chronic obstructive pulmonary disease, unspecified; J45.909 Unspecified asthma, uncomplicated; Z79.4 Long term (current) use of insulin; Z79.899 Other long term (current) drug therapy; Z91.19 Patient's noncompliance with other medical treatment and regimen; Z88.6 Allergy status to analgesic agent; Z88.1 Allergy status to other antibiotic agents; Z88.5 Allergy status to narcotic agent; Z88.8 Allergy status to other drugs, medicaments and biological substances
CPT/HCPCS: 99284 ×2; 36415; 94640; 97161; 97165; 80053; 80048; 80177; 83036; 85025 ×2; G0378 ×4